=== PATIENT | male | born 1965 | race Caucasian/White ===

== ENCOUNTER 2020-11-26 12:19 | Inpatient (IN) | payer OTHER ==
[~2020-11-26] VITALS: Ht 182.9 cm; Wt 95.1 kg
[~2020-11-26 12:19] MED LIST: ALBU.083IS IH; ALBU90OI; BP MED; CEPH500 PO; CETI10 PO; CODGUAEL PO; CYCL10 PO; DIPH50; DOXY100 PO; EPIN.3I IM; FAMO20 PO; LISI20 PO; Levaquin750 MG PO; METF500 PO; METPRE4DP PO; PRED20 PO; SUGAR PILL
[2020-11-26 13:02] LABS: BASOPHILS ABSOLUTE AUTO 0.05 K/mm3 (0.00-0.23); BASOPHILS PERCENT AUTO 1 % (0-2); EOSINOPHILS ABSOLUTE AUTO 0.08 K/mm3 (0.00-0.68); EOSINOPHILS PERCENT AUTO 1 % (0-6); Hematocrit 43.1 % (37.0-53.0); IMMATURE GRAN ABSOLUTE AUTO 0.02 K/mm3 (0.00-0.10); IMMATURE GRAN PERCENT AUTO 0 % (0-1); LYMPHOCYTES ABSOLUTE AUTO 1.82 K/mm3 (0.84-5.20); LYMPHOCYTES PERCENT AUTO 22 % (21-46); MONOCYTES ABSOLUTE AUTO 0.74 K/mm3 (0.16-1.47); MONOCYTES PERCENT AUTO 9 % (4-13); Mean Corpuscular HGB 28.9 pg (26.0-34.0); Mean Corpuscular HGB Conc 32.5 g/dL (31.5-36.5); Mean Corpuscular Volume 89 fL (80-100); Mean Platelet Volume 11.4 fL (9.1-12.4); NEUTROPHILS ABSOLUTE AUTO 5.57 K/mm3 (1.96-9.15); NEUTROPHILS PERCENT AUTO 67 % (41-73); Platelet Count 275 K/mm3 (150-400); RDW Coefficient Variation 13.3 % (11.7-14.2); RDW Standard Deviation 43.8 fL (35.1-46.3); Red Blood Cell Count 4.85 M/mm3 (4.30-5.90); White Blood Cell Count 8.28 K/mm3 (4.00-11.30)
[2020-11-26 13:04] LABS: Alanine Aminotransfer (ALT/SGP 40 U/L (12-78); Albumin, Blood 3.4 g/dL (3.4-5.0); Albumin/Globulin Ratio 0.9 (0.8-1.8); Alk Phos 40 U/L (50-136); Anion Gap 3 mmol/L (6-16); Aspartate Aminotrans (AST/SGOT 18 U/L (12-37); Bilirubin, Total 0.6 mg/dL (0.1-1.0); Blood Urea Nitrogen 12 mg/dL (8-24); Bun/Creatinine Ratio 16.2 (12.0-20.0); CO2, Blood 32 mmol/L (21-32); Chloride, Blood 97 mmol/L (98-108); Creatinine, Blood 0.74 mg/dL (0.60-1.20); Globulin, Blood 3.8 g/dL (2.2-4.0); Glomerular Filtration Rate >60 (60-); Glucose, Blood 230 mg/dL (70-99); Potassium, Blood 4.3 mmol/L (3.5-5.5); Sodium, Blood 132 mmol/L (136-145); Total Protein, Blood 7.2 g/dL (6.4-8.2); Troponin I 0.024 ng/mL (0.000-0.040)
--- NOTE | 2020-11-26 15:23 | NUR ---
Report by phone received from ED RN. Pt will be admitting to PCU 3.
--- NOTE | 2020-11-26 16:00 | NUR ---
PT arrived to PCU 5; pleasant, cooperative, answering questions appropriately with occasional inappropriate laughter. States had covid vaccine, first one noted on his vacc card, which was copied and placed in the chart. Blood pressure is stable, heart rate continues to be 145/min. Oral metoprolol given as ordered. IV metoprolol held as it appears to be a duplicate order; IV push metoprolol documented as given about 1 hour ago in the ED. Pt is lying back in bed, no Shob, no anxiety, no dyspnea, and denies any pain or dyspnea.
--- NOTE | 2020-11-26 17:02 | NUR ---
Call to Dr. Choi regarding persistent afib rate 140s, one hour post p.o. lopressor, and also after receiving iv lasix and iv lopressor in the ED. Blood pressure is stable, pt condition asymptomatic. spo2 99-100% at rest on room air. Denies chest pain/dyspnea. Anticipating new orders for dig loading from Dr. Choi.
[2020-11-26 18:12] LABS: U Amphetamine Screen DETECTED; U Barbituate Screen Not Detected; U Benzodiazapine Screen Not Detected; U Buprenorphine Screen Not Detected; U Cannabinoids Screen Not Detected; U Cocaine Screen Not Detected; U Methadone Screen Not Detected; U Methamphetamine Screen DETECTED; U Opiates Screen Not Detected; U Oxycodone Screen Not Detected; U Phencyclidine Screen Not Detected; U Propoxyphene Screen Not Detected
--- NOTE | 2020-11-26 19:20 | NUR ---
ASSUMERD CARE OF PATIENT, NO REQUESTS OR CONCERNS AT THIS TIME. SEE [facility] FOR FULL ASSESSMENT.
[2020-11-27 01:04] LABS: BASOPHILS ABSOLUTE AUTO 0.06 K/mm3 (0.00-0.23); BASOPHILS PERCENT AUTO 1 % (0-2); EOSINOPHILS ABSOLUTE AUTO 0.09 K/mm3 (0.00-0.68); EOSINOPHILS PERCENT AUTO 1 % (0-6); Hematocrit 39.8 % (37.0-53.0); Hemoglobin 13.1 g/dL (13.5-17.5); IMMATURE GRAN ABSOLUTE AUTO 0.01 K/mm3 (0.00-0.10); IMMATURE GRAN PERCENT AUTO 0 % (0-1); LYMPHOCYTES ABSOLUTE AUTO 1.78 K/mm3 (0.84-5.20); LYMPHOCYTES PERCENT AUTO 26 % (21-46); MONOCYTES ABSOLUTE AUTO 0.67 K/mm3 (0.16-1.47); MONOCYTES PERCENT AUTO 10 % (4-13); Mean Corpuscular HGB 29.4 pg (26.0-34.0); Mean Corpuscular HGB Conc 32.9 g/dL (31.5-36.5); Mean Corpuscular Volume 89 fL (80-100); Mean Platelet Volume 11.2 fL (9.1-12.4); NEUTROPHILS ABSOLUTE AUTO 4.25 K/mm3 (1.96-9.15); NEUTROPHILS PERCENT AUTO 62 % (41-73); Platelet Count 232 K/mm3 (150-400); RDW Coefficient Variation 13.3 % (11.7-14.2); RDW Standard Deviation 43.6 fL (35.1-46.3); Red Blood Cell Count 4.46 M/mm3 (4.30-5.90); White Blood Cell Count 6.86 K/mm3 (4.00-11.30)
[2020-11-27 01:19] LABS: International Normalized Ratio 1.26; Prothrombin Time Results 13.4 Sec (9.7-11.5)
[2020-11-27 01:24] LABS: Alanine Aminotransfer (ALT/SGP 36 U/L (12-78); Albumin, Blood 2.9 g/dL (3.4-5.0); Albumin/Globulin Ratio 0.9 (0.8-1.8); Alk Phos 35 U/L (50-136); Anion Gap 5 mmol/L (6-16); Aspartate Aminotrans (AST/SGOT 14 U/L (12-37); Bilirubin, Total 0.5 mg/dL (0.1-1.0); Blood Urea Nitrogen 12 mg/dL (8-24); Bun/Creatinine Ratio 19.3 (12.0-20.0); CO2, Blood 32 mmol/L (21-32); Calcium, Blood 8.5 mg/dL (8.5-10.1); Chloride, Blood 99 mmol/L (98-108); Creatinine, Blood 0.62 mg/dL (0.60-1.20); Globulin, Blood 3.3 g/dL (2.2-4.0); Glomerular Filtration Rate >60 (60-); Glucose, Blood 217 mg/dL (70-99); Magnesium, Blood 1.8 mg/dL (1.6-2.4); Sodium, Blood 136 mmol/L (136-145); Total Protein, Blood 6.2 g/dL (6.4-8.2); Troponin I 0.031 ng/mL (0.000-0.040)
--- NOTE | 2020-11-27 10:19 | NUR ---
Supportive Visit Pt resting in bed and denies pain, dyspnea, anxiety, and nausea. Engaged in therapeutic discussion regarding advanced care planning. Gentle education on disease process including trajectory of disease. Discussed the importance of compliance with MD recommendations. Pt appears withdrawn and does not make eye contact during visit. Pt V/U and this RN ended visit. Spoke with Pt's primary RN Mary and discussed case. Palliative Care will remain available.
--- NOTE | 2020-11-27 10:40 | NUR ---
CARDIZEM GTT OFF HR IN TARGET RANGE OF 90 BPM.
--- NOTE | 2020-11-27 17:53 | NUR ---
SHIFT SUMMARY PT ALERT AND ORIENTED X 4. HR TACHY AT TIMES. CARDIZEM GTT STOPPED AT 1040. HR IN 70'S-80'S. BP STABLE. MAP ABOVE 65. OXYGEN SATURATION MAINTAINED ABOVE 92% ON 2 L OF OXYGEN VIA NC. PT SBA. PT ABLE TO TURN SELF IN BED NEEDED. NO CP OR PRESSURE. ECHO DONE, RESULTS NOT AVAILABLE. WILL CONT TO MONITOR UNTIL REPORT GIVEN TO NIGHTSHIFT RN.
--- NOTE | 2020-11-27 21:03 | NUR ---
DR. VERNON INFORMED OF HR SUSTAINED ABOVE 100 FOR 15+ MIN. WAS TOLD BY PRESLEY GAMBINO THAT MD WANTED INFORMED OF THIS. AFLUTTER 108 AT THIS TIME. VSS. ASYMPTOMATIC RESTING IN BED. NO NEW ORDERS AT THIS TIME. WILL CONTINUE TO MONITOR.
[2020-11-28 08:09] LABS: Anion Gap 2 mmol/L (6-16); Blood Urea Nitrogen 13 mg/dL (8-24); Bun/Creatinine Ratio 20.6 (12.0-20.0); CO2, Blood 33 mmol/L (21-32); Calcium, Blood 8.5 mg/dL (8.5-10.1); Chloride, Blood 102 mmol/L (98-108); Creatinine, Blood 0.63 mg/dL (0.60-1.20); Glomerular Filtration Rate >60 (60-); Glucose, Blood 196 mg/dL (70-99); Magnesium, Blood 1.7 mg/dL (1.6-2.4); Potassium, Blood 3.9 mmol/L (3.5-5.5); Sodium, Blood 137 mmol/L (136-145)
--- NOTE | 2020-11-28 08:14 | NUR ---
AWARE OF BLOOD PRESSURE. OK TO GIVE LASIX AND LOPRESSOR
--- NOTE | 2020-11-28 09:28 | NUR ---
ADVISED HEART RATE 110-120'S. GOT LOPRESSOR THIS MORNING AROUND 0845. MD DOES NOT WANT IV LOPRESSOR GIVEN. WILL D'C IV LOPRESSOR. TO WATCH.
--- NOTE | 2020-11-28 18:00 | NUR ---
ALERT. ORIENTED. TELE ON. AFIB 110. HAS BEEN UP TO 120. DENIES ANY PAIN. UNLABORED RESPIRATIONS. WILL HAVE SECOND PART OF STRESS TEST TOMORROW. PATIENT AWARE NPO AFTER MIDNITE. WCTM
--- NOTE | 2020-11-29 06:27 | NUR ---
SHIFT SUMMARY NO ACUTE CHANGES OVERNIGHT. PT SLEPT WELL OVERNIGHT. HE HAD 2 EPISODES OF INCREASED HR AT 2100, ON 130'S A FLUTTER AND 0400 150'S AFLUTTER. PT WAS ASYMPTOMATIC, AND COMFORTABLE IN BED WHEN THIS HAPPENED. HE IS NPO AFTER MIDNIGHT FOR HIS UPCOMING STRESS TEST TODAY. PT VOIDING ADEQUATELY DENIES ANY ISSUES. TOLERATING PO INTAKE. DENIES NAUSEA AND VOMITING. HE ALSO DENIES CHEST PAIN AND SOB. VSS. BLE STILL HAS SOME MILD EDEMA. CALL LIGHT WITHIN REACH. WILL PROVIDE REPORT TO ONCOMING NURSE.
[2020-11-29] MEDS ORDERED: ATOR40TA PO (16:40)
[2020-11-29] MEDS ORDERED: ASPI81CH PO (16:40)
[2020-11-29] MEDS ORDERED: FURO40 PO (16:40)
[2020-11-29] MEDS ORDERED: XARELTO20 MG PO (16:41)
[2020-11-29] MEDS ORDERED: METO50ER PO (16:41)
[2020-11-29] MEDS ORDERED: LISI5 PO (16:41)
--- NOTE | 2020-11-29 17:53 | NUR ---
DISCHARGE SUMMARY PATIENT ALERT AND ORIENTED THROUGHOUT SHIFT. TOLERATING ADA DIET AND FLUIDS. CARDIAC STRESS TEST UNCONCERNING PER MD. PATIENT DISCHARGED HOME AND NEEDS TO FOLLOW UP WITH PCP. DISCHARGE EDUCATION GIVEN ON NEW MEDS, ACTIVITY, AND FOLLOW UP APPOINTMENTS. PATIENT LEFT UNIT AT 1750 VIA WHEELCHAIR FOR HOME VIA TAXI.
== END 2020-11-29 17:42 | disposition home or self-care (01) | DRG 308 ==
LOC: ER 12:19 → PCU 14:13 → EDBEDREQTM 14:26 → PCU 15:35
PROVIDERS: Nurse Practitioner Acute Care; Physician Assistant; ADMIT Hospitalist
DX: I48.92 Unspecified atrial flutter (principal); I50.21 Acute systolic (congestive) heart failure; E87.1 Hypo-osmolality and hyponatremia; I11.0 Hypertensive heart disease with heart failure; I42.0 Dilated cardiomyopathy; E11.9 Type 2 diabetes mellitus without complications; F15.10 Other stimulant abuse, uncomplicated; F17.210 Nicotine dependence, cigarettes, uncomplicated; J45.20 Mild intermittent asthma, uncomplicated; Z88.0 Allergy status to penicillin; Z91.19 Patient's noncompliance with other medical treatment and regimen
CPT/HCPCS: 36415; 71046; 78452; 80048; 80053; 82947; 83036; 83735; 83880; 84443; 84484; 85025; 85610; 93005; 93010; 93017; 94640; 94664; 94760; 96374; 96375; 99285-25; A9270; A9500; C8929; J0706; J1160; J1940; J2785; Q9957

== ENCOUNTER 2020-12-22 14:23 | Observation (INO) | payer OTHER ==
[~2020-12-22] VITALS: Ht 182.9 cm; Wt 102.1 kg
[~2020-12-22 14:23] MED LIST changes: +ATOR40TA PO; +Aspir 8181 MG PO; +FURO40 PO; +LISI5 PO; +METO50ER PO; +XARELTO20 MG PO
[2020-12-22 14:59] LABS: BASOPHILS ABSOLUTE AUTO 0.05 K/mm3 (0.00-0.23); BASOPHILS PERCENT AUTO 1 % (0-2); EOSINOPHILS ABSOLUTE AUTO 0.17 K/mm3 (0.00-0.68); EOSINOPHILS PERCENT AUTO 2 % (0-6); Hematocrit 41.2 % (37.0-53.0); Hemoglobin 13.3 g/dL (13.5-17.5); IMMATURE GRAN ABSOLUTE AUTO 0.01 K/mm3 (0.00-0.10); IMMATURE GRAN PERCENT AUTO 0 % (0-1); LYMPHOCYTES ABSOLUTE AUTO 1.74 K/mm3 (0.84-5.20); LYMPHOCYTES PERCENT AUTO 23 % (21-46); MONOCYTES ABSOLUTE AUTO 0.77 K/mm3 (0.16-1.47); MONOCYTES PERCENT AUTO 10 % (4-13); Mean Corpuscular HGB Conc 32.3 g/dL (31.5-36.5); Mean Corpuscular Volume 90 fL (80-100); Mean Platelet Volume 11.6 fL (9.1-12.4); NEUTROPHILS ABSOLUTE AUTO 4.94 K/mm3 (1.96-9.15); NEUTROPHILS PERCENT AUTO 64 % (41-73); Platelet Count 206 K/mm3 (150-400); RDW Coefficient Variation 13.9 % (11.7-14.2); RDW Standard Deviation 46.1 fL (35.1-46.3); Red Blood Cell Count 4.59 M/mm3 (4.30-5.90); White Blood Cell Count 7.68 K/mm3 (4.00-11.30)
[2020-12-22 15:58] LABS: Alanine Aminotransfer (ALT/SGP 45 U/L (12-78); Albumin, Blood 3.4 g/dL (3.4-5.0); Albumin/Globulin Ratio 0.9 (0.8-1.8); Alk Phos 45 U/L (50-136); Anion Gap 5 mmol/L (6-16); Aspartate Aminotrans (AST/SGOT 20 U/L (12-37); Bilirubin, Total 0.3 mg/dL (0.1-1.0); Blood Urea Nitrogen 14 mg/dL (8-24); Bun/Creatinine Ratio 21.1 (12.0-20.0); CO2, Blood 32 mmol/L (21-32); Calcium, Blood 8.5 mg/dL (8.5-10.1); Chloride, Blood 97 mmol/L (98-108); Creatinine, Blood 0.66 mg/dL (0.60-1.20); Globulin, Blood 3.8 g/dL (2.2-4.0); Glomerular Filtration Rate >60 (60-); Glucose, Blood 210 mg/dL (70-99); Sodium, Blood 134 mmol/L (136-145); Total Protein, Blood 7.2 g/dL (6.4-8.2); Troponin I <0.015 ng/mL (0.000-0.040)
[2020-12-22 18:43] LABS: SARS-Cov-2 (COVID-19) PCR, MMC NEGATIVE (NEGATIVE)
[2020-12-22 22:16] LABS: U Amphetamine Screen DETECTED; U Barbituate Screen Not Detected; U Benzodiazapine Screen Not Detected; U Buprenorphine Screen Not Detected; U Cannabinoids Screen Not Detected; U Cocaine Screen Not Detected; U Methadone Screen Not Detected; U Methamphetamine Screen DETECTED; U Opiates Screen Not Detected; U Oxycodone Screen Not Detected; U Phencyclidine Screen Not Detected; U Propoxyphene Screen Not Detected
[2020-12-23 04:00] LABS: BASOPHILS ABSOLUTE AUTO 0.05 K/mm3 (0.00-0.23); BASOPHILS PERCENT AUTO 1 % (0-2); EOSINOPHILS ABSOLUTE AUTO 0.11 K/mm3 (0.00-0.68); EOSINOPHILS PERCENT AUTO 1 % (0-6); Hematocrit 39.7 % (37.0-53.0); Hemoglobin 12.6 g/dL (13.5-17.5); IMMATURE GRAN ABSOLUTE AUTO 0.02 K/mm3 (0.00-0.10); IMMATURE GRAN PERCENT AUTO 0 % (0-1); LYMPHOCYTES ABSOLUTE AUTO 1.66 K/mm3 (0.84-5.20); LYMPHOCYTES PERCENT AUTO 21 % (21-46); MONOCYTES ABSOLUTE AUTO 0.66 K/mm3 (0.16-1.47); MONOCYTES PERCENT AUTO 8 % (4-13); Mean Corpuscular HGB 28.8 pg (26.0-34.0); Mean Corpuscular HGB Conc 31.7 g/dL (31.5-36.5); Mean Corpuscular Volume 91 fL (80-100); Mean Platelet Volume 11.8 fL (9.1-12.4); NEUTROPHILS PERCENT AUTO 68 % (41-73); Platelet Count 203 K/mm3 (150-400); RDW Standard Deviation 46.8 fL (35.1-46.3); Red Blood Cell Count 4.37 M/mm3 (4.30-5.90)
[2020-12-23 04:18] LABS: Anion Gap 5 mmol/L (6-16); Blood Urea Nitrogen 18 mg/dL (8-24); Bun/Creatinine Ratio 18.6 (12.0-20.0); CO2, Blood 34 mmol/L (21-32); Calcium, Blood 8.7 mg/dL (8.5-10.1); Chloride, Blood 95 mmol/L (98-108); Creatinine, Blood 0.97 mg/dL (0.60-1.20); Glomerular Filtration Rate >60 (60-); Glucose, Blood 229 mg/dL (70-99); Magnesium, Blood 2.3 mg/dL (1.6-2.4); Potassium, Blood 4.2 mmol/L (3.5-5.5); Sodium, Blood 134 mmol/L (136-145)
--- NOTE | 2020-12-23 06:28 | NUR ---
SHIFT SUMMARY PT ARRIVED FROM ED AT 2300. ADENOSIVE IV PUSHES AND IV LASIX GIVEN IN ED TO MANAGE HR. PITTING EDEMA IN LOWER EXTREMITIES. ALERT AND ORIENTED X4. X1 STANDBY ASSIST, AMBULATES TO BATHROOM ON HIS OWN. A-FIB 110-120'S. DESATS WITH ACTIVITY, MAINTAINING OVER 92% AT REST ON 3L NC. TOX SCREEN POSITIVE FOR AMPHETAMINES. AWAKE MOST OF NIGHT. WILL CONTINUE TO MONITOR UNTIL REPORT GIVEN TO DAYSHIFT RN
--- NOTE | 2020-12-23 14:24 | NUR ---
DISCHARGE NOTE PATIENT EDUCATED ON DISCHARGE INSTRUCTIONS, INCUDING MEDICATION INSTRUCTIONS BY THIS NURSE. PATIENT WAS TRANSFERED VIA WHEELCHAIR BY ROX GUTIERREZ AND WAS STABLE UPON DISCHARGE. PATIENT WAS PICKED UP BY SPOUSE AT [facility] AND REFUSED TO TAKE BELONGINGS INCLUDING DISCHARGE INSTRUCTIONS WITH HIM STATED BY ROX GUTIERREZ.
== END 2020-12-23 10:56 | disposition home or self-care (01) ==
LOC: ER 14:23 → PCU 14:24
PROVIDERS: Physician Assistant; Student in an Organized Health Care Education/Training Program; ADMIT Internal Medicine
DX: I11.0 Hypertensive heart disease with heart failure (principal); I50.43 Acute on chronic combined systolic (congestive) and diastolic (congestive) heart failure; I48.92 Unspecified atrial flutter; E11.9 Type 2 diabetes mellitus without complications; J45.909 Unspecified asthma, uncomplicated; F17.210 Nicotine dependence, cigarettes, uncomplicated; I08.1 Rheumatic disorders of both mitral and tricuspid valves; I27.20 Pulmonary hypertension, unspecified; F15.10 Other stimulant abuse, uncomplicated; Z88.0 Allergy status to penicillin; Z91.030 Bee allergy status; Z79.01 Long term (current) use of anticoagulants; Z91.14 Patient's other noncompliance with medication regimen; Z20.822 Contact with and (suspected) exposure to COVID-19
CPT/HCPCS: 36415; 71046; 80048; 80053; 82947; 83036; 83735; 83880; 84443; 84484; 85025; 93005; 93010; 96361; 96365; 96366; 96375; 96376; 99285-25; A9270; G0378; J0153; J1940; J3475; J7030; U0004

== ENCOUNTER 2020-12-30 14:49 | Inpatient (IN) | payer OTHER ==
[~2020-12-30] VITALS: Ht 182.9 cm; Wt 86.2 kg
[2020-12-30 15:22] LABS: BASOPHILS ABSOLUTE AUTO 0.03 K/mm3 (0.00-0.23); BASOPHILS PERCENT AUTO 1 % (0-2); EOSINOPHILS ABSOLUTE AUTO 0.01 K/mm3 (0.00-0.68); EOSINOPHILS PERCENT AUTO 0 % (0-6); Hematocrit 41.8 % (37.0-53.0); Hemoglobin 13.2 g/dL (13.5-17.5); IMMATURE GRAN ABSOLUTE AUTO 0.01 K/mm3 (0.00-0.10); IMMATURE GRAN PERCENT AUTO 0 % (0-1); LYMPHOCYTES ABSOLUTE AUTO 1.14 K/mm3 (0.84-5.20); LYMPHOCYTES PERCENT AUTO 22 % (21-46); MONOCYTES ABSOLUTE AUTO 0.66 K/mm3 (0.16-1.47); MONOCYTES PERCENT AUTO 13 % (4-13); Mean Corpuscular HGB 28.9 pg (26.0-34.0); Mean Corpuscular HGB Conc 31.6 g/dL (31.5-36.5); Mean Corpuscular Volume 92 fL (80-100); NEUTROPHILS PERCENT AUTO 65 % (41-73); Platelet Count 253 K/mm3 (150-400); RDW Coefficient Variation 14.5 % (11.7-14.2); RDW Standard Deviation 48.1 fL (35.1-46.3); Red Blood Cell Count 4.57 M/mm3 (4.30-5.90); White Blood Cell Count 5.25 K/mm3 (4.00-11.30)
[2020-12-30 15:39] LABS: Magnesium, Blood 1.8 mg/dL (1.6-2.4)
[2020-12-30 15:40] LABS: Alanine Aminotransfer (ALT/SGP 62 U/L (12-78); Albumin/Globulin Ratio 0.8 (0.8-1.8); Alk Phos 43 U/L (50-136); Anion Gap 3 mmol/L (6-16); Aspartate Aminotrans (AST/SGOT 26 U/L (12-37); Bilirubin, Total 0.5 mg/dL (0.1-1.0); Blood Urea Nitrogen 17 mg/dL (8-24); Bun/Creatinine Ratio 21.6 (12.0-20.0); CO2, Blood 33 mmol/L (21-32); Calcium, Blood 8.2 mg/dL (8.5-10.1); Chloride, Blood 97 mmol/L (98-108); Creatinine, Blood 0.79 mg/dL (0.60-1.20); Globulin, Blood 3.6 g/dL (2.2-4.0); Glomerular Filtration Rate >60 (60-); Glucose, Blood 311 mg/dL (70-99); Potassium, Blood 5.1 mmol/L (3.5-5.5); Sodium, Blood 133 mmol/L (136-145); Total Protein, Blood 6.6 g/dL (6.4-8.2)
[2020-12-30 16:31] LABS: U Amphetamine Screen Not Detected; U Barbituate Screen Not Detected; U Benzodiazapine Screen Not Detected; U Buprenorphine Screen Not Detected; U Cannabinoids Screen Not Detected; U Cocaine Screen Not Detected; U Methadone Screen Not Detected; U Methamphetamine Screen DETECTED; U Opiates Screen Not Detected; U Oxycodone Screen Not Detected; U Phencyclidine Screen Not Detected; U Propoxyphene Screen Not Detected
[2020-12-31 00:30] LABS: Source, Urine Catheter
[2020-12-31 00:31] LABS: Bilirubin, Urine Neg (Neg); Blood, Urine 3+ (Neg); Glucose Qualitative, Urine Neg (Neg); Ketones, Urine Neg (Neg); Leukocyte Esterase, Urine 1+ (Neg); Nitrite, Urine Neg (Neg); Protein, Urine 3+ (Neg); Specific Gravity, Urine 1.025 (1.003-1.022); Urobilinogen, Urine 2+ (Normal)
[2020-12-31 00:37] LABS: Appearance, Urine Hazy (Clear); Bacteria Few /hpf; Color, Urine Yellow (P-Yellow); Hyaline Casts TNTC /lpf (0-2); Squamous Epithelial Cells Rare /hpf (Few); White Blood Cells, Urine TNTC /hpf (0-5)
[2020-12-31 05:41] LABS: BASOPHILS ABSOLUTE AUTO 0.01 K/mm3 (0.00-0.23); BASOPHILS PERCENT AUTO 0 % (0-2); EOSINOPHILS PERCENT AUTO 0 % (0-6); Hematocrit 45.2 % (37.0-53.0); Hemoglobin 13.5 g/dL (13.5-17.5); IMMATURE GRAN ABSOLUTE AUTO 0.02 K/mm3 (0.00-0.10); IMMATURE GRAN PERCENT AUTO 0 % (0-1); LYMPHOCYTES ABSOLUTE AUTO 0.61 K/mm3 (0.84-5.20); LYMPHOCYTES PERCENT AUTO 11 % (21-46); MONOCYTES PERCENT AUTO 9 % (4-13); Mean Corpuscular HGB 28.5 pg (26.0-34.0); Mean Corpuscular HGB Conc 29.9 g/dL (31.5-36.5); Mean Corpuscular Volume 95 fL (80-100); Mean Platelet Volume 10.8 fL (9.1-12.4); NEUTROPHILS ABSOLUTE AUTO 4.27 K/mm3 (1.96-9.15); NEUTROPHILS PERCENT AUTO 79 % (41-73); Platelet Count 257 K/mm3 (150-400); RDW Coefficient Variation 14.4 % (11.7-14.2); RDW Standard Deviation 50.2 fL (35.1-46.3); Red Blood Cell Count 4.74 M/mm3 (4.30-5.90); White Blood Cell Count 5.41 K/mm3 (4.00-11.30)
[2020-12-31 06:11] LABS: Anion Gap 5 mmol/L (6-16); Blood Urea Nitrogen 26 mg/dL (8-24); Bun/Creatinine Ratio 25.5 (12.0-20.0); CO2, Blood 34 mmol/L (21-32); Calcium, Blood 8.1 mg/dL (8.5-10.1); Chloride, Blood 96 mmol/L (98-108); Creatinine, Blood 1.02 mg/dL (0.60-1.20); Glomerular Filtration Rate >60 (60-); Glucose, Blood 137 mg/dL (70-99); Potassium, Blood 5.1 mmol/L (3.5-5.5); Sodium, Blood 135 mmol/L (136-145)
--- NOTE | 2020-12-31 08:04 | NUR ---
SHIFT SUMMARY PATIENT ARRIVED TO ROOM 335 VIA STRETCHER. ALERT AND ORIENTED X2. CONFUSED AND FORGETFUL. MEDICATED PER EMAR FOR TACHYCARDIA. PLACED ON A NONREBREATHER MASK TO HELP MAINTAIN SATS AND PLACED ON CONTINUOUS BIOX TO MONITOR SATS.
[2020-12-31 09:50] LABS: Base Excess Venous 6.1 mmol/L; Bicarbonate Venous 26.1 mmol/L (24.0-30.0); PCO2 Venous 97 mmHg (38-42); PO2 Venous 49.1 mmHg (38-42); pH Blood Venous 7.16 (7.34-7.37)
[2020-12-31 10:54] LABS: Base Excess Venous 7.3 mmol/L; Bicarbonate Venous 26.2 mmol/L (24.0-30.0); PCO2 Venous 96.9 mmHg (38-42); PO2 Venous 27.1 mmHg (38-42); pH Blood Venous 7.18 (7.34-7.37)
--- NOTE | 2020-12-31 12:19 | NUR ---
Care Assumed 1122 Pt SKEIN TIER from medical floor 335. Pt unresponsive per medical floor nurse. Pt on BIPAP 18/5, FIO2 50% when care assumed. Pt wakes to sternal rub initally but since arrival has been able to state name, nods no to knowing location, and following all commands. Opens eyes to verbal command. Per Dr. Robertson NS bolus stopped and pt started on Levophed @ 1 mcg/min to keep MAP > 65, via right AC IV. IV flushs well but not returning blood. Charge nurse Tasneem at bedside to place PICC. Pt in AFIB HR 120's. Pitting edema 2+ in BLE and 1+ in upper extrems. Call light within reach.
--- NOTE | 2020-12-31 14:09 | NUR ---
Ethics consultation order received and processed. Clarification sought regarding the extent to which the principals POLST is legally binding, if it stipulates medical treatment which is contraindicated, disproportionate or beyond a reasonable standard of care. The POLST is a medical order that provides helpful insight into the principals wishes. It should be defaulted to for guidance on what the principal would generally be agreeable to. If the patient is incapable, or lacks testamentary capacity, and the goals of treatment, along with the patients clincial reality are not well aligned to the POLST, a discussion with his proxy or NOK to alter the code status would be appropriate. If such is the case in the providers judgement, I would recommend using the informed dissent process to educate the principals sister that the patient is now elegible for hospice, and that adopting a non-aggressive course of treatment would be the most responsible, dignified, and ethically appropriate course moving forward. Thank you for this consult. Justice Dhaliwal ThD
--- NOTE | 2020-12-31 15:24 | NUR ---
NG tube insertion Attempted to insert NG to help decomrpess patients stomach. Pts abd is firm and round. Pt denies pain.NG tube attempted by Shannan GAMBINO and RT Busby without success. Will attempt again. Pt tolerated being off BIPAP for a few moments.
--- NOTE | 2020-12-31 15:41 | NUR ---
Rapid response called on patient. transfered to ICU. Attemtped several times to call his sister with no answer. pt has on bipap, expressed full treatment has a polst. Called for ethics consult as unable to reach family for decision making. pt kps score is 20%. prognosis very poor due to his severe comorbid conditions. Will continue to try to reach family.
[2020-12-31 15:59] LABS: Bicarbonate Venous 27.4 mmol/L (24.0-30.0); PCO2 Venous 73.8 mmHg (38-42); PO2 Venous 55.1 mmHg (38-42); pH Blood Venous 7.26 (7.34-7.37)
[2020-12-31 16:00] LABS: Base Excess Venous 6.2 mmol/L
--- NOTE | 2020-12-31 16:17 | NUR ---
Update- provider visit Dr. Robertson at bedside and would like Lasix given now instead of 1800. Pts current urine output is 125 ml's. Will continue to monitor. Bipap 18/5, FIO2 35%. Levophed GTT 5 mcg/min.
--- NOTE | 2020-12-31 18:49 | NUR ---
Shift Summary Bipap settings: 18/5, FIO2 35%, SPO2 > 90%. Pt continues to following commands but falls asleep when undisturbed. Levophed GTT 3 MCG/MIN, MAP > 65. Infusing via PICC to BRANDT. Tirado in place. Pts abd continues to be distended. Provider made aware of multiple attempted NG tube insertion. Will ask nightshift to attempt NG tube again. Currently allowing pt to rest. Pt remains in AFIB HR 120-130's.
--- NOTE | 2020-12-31 19:15 | NUR ---
ASSUMPTION OF CARE PT REMAINS ON BIPAP WITH SETTINGS 18/5 35%. PT TOLERATING BIPAP WELL, DOES NOT SHOW SIGNS OF DISTRESS OR PULLING AT MASK. PT WAKENS TO VERBAL STIMULI. FOLLOWS VERBAL COMMANDS, MOVES UPPER AND LOWER EXTREMITIES WHEN ASKED AND WITH PURPOSEFUL MOVEMENT. ABDOMEN DISTENDED AND FIRM. PT DENIES PAIN WITH PALPATION. NO NGT IN PLACE. PT RECEIVING LEVOPHED 2MCG/MIN. LR IN PLACE. SEE SHIFT ASSESSMENT.
[2021-01-01 04:08] LABS: BASOPHILS ABSOLUTE AUTO 0.01 K/mm3 (0.00-0.23); BASOPHILS PERCENT AUTO 0 % (0-2); EOSINOPHILS PERCENT AUTO 0 % (0-6); Hematocrit 44.9 % (37.0-53.0); Hemoglobin 14.1 g/dL (13.5-17.5); IMMATURE GRAN ABSOLUTE AUTO 0.04 K/mm3 (0.00-0.10); IMMATURE GRAN PERCENT AUTO 0 % (0-1); LYMPHOCYTES ABSOLUTE AUTO 1.41 K/mm3 (0.84-5.20); LYMPHOCYTES PERCENT AUTO 16 % (21-46); MONOCYTES PERCENT AUTO 12 % (4-13); Mean Corpuscular HGB Conc 31.4 g/dL (31.5-36.5); Mean Corpuscular Volume 92 fL (80-100); Mean Platelet Volume 10.9 fL (9.1-12.4); NEUTROPHILS ABSOLUTE AUTO 6.38 K/mm3 (1.96-9.15); NEUTROPHILS PERCENT AUTO 71 % (41-73); Platelet Count 257 K/mm3 (150-400); RDW Coefficient Variation 14.2 % (11.7-14.2); RDW Standard Deviation 48.8 fL (35.1-46.3); Red Blood Cell Count 4.86 M/mm3 (4.30-5.90); White Blood Cell Count 8.94 K/mm3 (4.00-11.30)
[2021-01-01 04:25] LABS: Alanine Aminotransfer (ALT/SGP 103 U/L (12-78); Albumin/Globulin Ratio 0.9 (0.8-1.8); Alk Phos 43 U/L (50-136); Anion Gap 2 mmol/L (6-16); Aspartate Aminotrans (AST/SGOT 58 U/L (12-37); Bilirubin, Total 0.5 mg/dL (0.1-1.0); Blood Urea Nitrogen 32 mg/dL (8-24); Bun/Creatinine Ratio 34.5 (12.0-20.0); CO2, Blood 38 mmol/L (21-32); Calcium, Blood 8.2 mg/dL (8.5-10.1); Chloride, Blood 95 mmol/L (98-108); Creatinine, Blood 0.93 mg/dL (0.60-1.20); Globulin, Blood 3.3 g/dL (2.2-4.0); Glomerular Filtration Rate >60 (60-); Glucose, Blood 162 mg/dL (70-99); Phosphorus, Blood 5.4 mg/dL (2.5-4.9); Potassium, Blood 5.1 mmol/L (3.5-5.5); Sodium, Blood 135 mmol/L (136-145); Total Protein, Blood 6.3 g/dL (6.4-8.2)
--- NOTE | 2021-01-01 06:52 | NUR ---
SHIFT SUMMARY PT REMAINS ON BIPAP AT THIS TIME. SETTINGS 18/5 FIO2 30%. PT TOLERATING MASK WELL, NO SIGNS OF DISTRESS OR PULLING AT MASK. PT RECEIVING LEVOPHED 3MCG/MIN. PT WAKENS TO VERBAL STIMULI AND FOLLOWS COMMANDS. PT OCCASIONALLY CONFUSED, SOMETIMES KNOWS HE IS AT THE HOSPITAL, OTHER TIMES SAYS HE DOES NOT KNOW WHERE HE IS. ANSWERS QUESTIONS APPROPRIATELY. LR IN PLACE DRAINING LIGHT YELLOW URINE. SHIFT OUTPUT OF 2250ML. SCROTUM IS REDDENED AND SWOLLEN. NONADHERENT DRESSING PLACED BETWEEN SCROTUM AND THIGHS. ABDOMEN REMAINS DISTENDED, FIRM TO TOUCH, NO PAIN WITH PALPATION. WILL REPORT TO ONCOMING RN.
--- NOTE | 2021-01-01 09:30 | NUR ---
ASSUMED CARE REPORT FROM DANIE/CHALINO RN AT 0700. PT RESTING IN BED. BIPAP IN PLACE AT SHIFT CHANGE 18/5/35%, CHANGED TO AIRVO 50L/30%. TOLERATING WELL. OCCASIONALLY DESAT TO HIGH 80'S. RESOLVED c DEEP BREATHS. PT A&O X 3. FOLLOWS COMMANDS. DENIES COMPLAINTS. DENIES SOB. LUNGS DIM IN BASES. REPORTS NON PRODUCTIVE COUGH. SPEAKING IN FULL SENTANCES. P/W/D. HR 150'S, DR PORTILLO NOTIFIED. AMIODORONE GTT STARTED ORDERED. PT DENIES CHEST PAIN, ST ON MONITOR. LEVO GTT FOR MAP>65. INFUSING AT 3 MCG/MIN AT THIS TIME. JOAN, ABLE TO REPOSITION SELF IN BED INDEPENDENTLY. PICC TO MILKA, DRESSING C/D/I. WILL CONTINUE TO MONITOR.
--- NOTE | 2021-01-01 09:37 | NUR ---
SPOKE WITH DR. ROMO AND DR. PORTILLO REGARDING PATIENT'S HEART RATE. PATIENT'S HEART RATE UP TO 150'S. PER REPORT IT WAS IN THE 130'S-140'S LAST NIGHT AND DID NOT RESPOND TO LOPRESSOR. PATIENT HAS METOPROLOL SUCCINATE 75 MG ORDERED THIS AM. HE IS RECEIVING NOREPINEPHRINE AT 3 MCGS. LAST BP 92/72. DR. ROMO STATED SHE WOULD PUT IN ORDERS FOR AMIODARONE BOLUS AND AMIODARONE DRIP. HOLD METOPROLOL SUCCINATE THIS AM.
--- NOTE | 2021-01-01 12:49 | NUR ---
AT APPROX 1145 WE WERE COMPLETING BEDBATH. PATIENT WAS ON AIRVO 50L FIO2 40%. PATIENT TURNED TO LEFT SIDE AND SPO2 DECREASED TO 77%. PLACED PATIENT BACK ON HIS BACK AND SWITCHED HIM TO BIPAP 18/5 FIO2 40%. PATIENT RECOVERED SPO2 TO 90'S WITHIN A FEW MINUTES. FINISHED BEDBATH AND HAD PATIENT WEAR BIPAP UNTIL 1230 AND SWITCHED HIM BACK TO AIRVO 50L FIO2 35%, SPO2 MAINTAINING IN 90'S AND PATIENT IS SITTING UP EATING LUNCH. CALL LIGHT IN REACH.
--- NOTE | 2021-01-01 12:53 | NUR ---
Update on the principals code status. I was informed that Davie's mentation improved and that he was currently stable for a conversation. Davie and I discussed that in his advanced condition, aggressive treatment would be of low medical benefit, and likely cause disproportionate harm. Davie verbalized that under such circumstances he would prefer to forgo mechanical intubation, chest compressions, and other equivalent forms of invasive care. Thank you for this consult. Justice Dhaliwal ThD
--- NOTE | 2021-01-01 13:38 | NUR ---
DR. MARTINEZ AT BEDSIDE. DISCUSSED POC. NOTIFIED HIM PATIENT ON AIRVO 50L FIO2 35%, DID REQUIRE TO BE PLACED ON BIPAP FOR SPO2 77% WHEN HE TURNED FOR BEDBATH. PATIENT IS NOW SITTING UP IN BED TOLERATING AIRVO 50L FIO2 35%. PATIENT DOES HAVE SCROTAL SWELLING AND RED AREAS TO INNER THIGHS AND SCROTUM. ORDERS RECEIVED INITIALLY FOR NYSTATIN POWDER TID. PHARMACY STATES THAT WE DO NOT CARRY NYSTATIN POWDER ANY LONGER. DR. MARTINEZ ORDERED MICONAZOLE POWDER TID INSTEAD.
--- NOTE | 2021-01-01 14:30 | NUR ---
DNR BAND PLACED AND VERIFIED WITH STAR DUVAL RN.
--- NOTE | 2021-01-01 18:46 | NUR ---
SHIFT SUMMARY PT ALTERATED BETWEEN BIPAP, 18/5/30% AND AIRVO 50L 30% THIS SHIFT. TOLERATED BREAKS WELL. DE SATS c EXERTION. DENIES COMPLAINTS. AMIODORONE GTT STARTED FOR HR, ST, RATE 130S. LEVO GTT CONTINUES FOR MAP >65. LR PATENT, DRAINING TO GRAVITY. WILL CONTINUE TO MONITOR UNTIL REPORT TO ONCOMING NURSE.
--- NOTE | 2021-01-01 20:10 | NUR ---
Pt cousin Taye Mayo saw him today she is a nurse at the hospital. Pt is ok with her involvement in his care and getting information. Taye is anurse here. This is of beneftit to a plan of care. She will try to reach out and contact his brother and get him some help with his living situation. will get him to fill out a polst and will review intermediate designer goals.
--- NOTE | 2021-01-01 21:45 | NUR ---
SHIFT ASSESSMENT ASSUMED CARE OF PT @ 1900. REPORT FROM IMMANUEL GRAVES. PT ALERT AND ORIENTED. FOLLOWING COMMANDS. MOVING ALL EXTREMITIES, BUT VERY WEAK. C/O SORENESS TO SCROTUM. ON AIRVO-50L/30% c O2 SATS >88%. DENIES SOB & CP. OCCASIONAL NONPRODUCTIVE COUGH. LEVO GTT INFUSING @ 3MCG/MIN C MAP >65. ST IN THE 130'S ON THE BRICK OFF BEARER. AMIODARONE GTT INFUSING. NO BM THIS SHIFT. WILL CONTINUE TO MONITOR.
--- NOTE | 2021-01-02 02:29 | NUR ---
UPDATE PT BEGAN C/O NAUSEA. MACHINE SPREADER NOTIFIED, PT GIVEN ZOFRAN AND ATIVAN. NG TUBE ESTABLISHED TO LIS. DRAINING COPIOUS AMNTS OF WOODRUFF SECRETIONS. AIRVO PRONGS MOVED TO MOUTH, PT TOLERATING AT THIS TIME. WILL CONTINUE TO MONITOR.
[2021-01-02 03:40] LABS: BASOPHILS ABSOLUTE AUTO 0.01 K/mm3 (0.00-0.23); BASOPHILS PERCENT AUTO 0 % (0-2); EOSINOPHILS PERCENT AUTO 0 % (0-6); Hematocrit 38.2 % (37.0-53.0); Hemoglobin 12.1 g/dL (13.5-17.5); IMMATURE GRAN ABSOLUTE AUTO 0.02 K/mm3 (0.00-0.10); IMMATURE GRAN PERCENT AUTO 0 % (0-1); LYMPHOCYTES ABSOLUTE AUTO 0.99 K/mm3 (0.84-5.20); LYMPHOCYTES PERCENT AUTO 14 % (21-46); MONOCYTES ABSOLUTE AUTO 0.76 K/mm3 (0.16-1.47); MONOCYTES PERCENT AUTO 11 % (4-13); Mean Corpuscular HGB 28.8 pg (26.0-34.0); Mean Corpuscular HGB Conc 31.7 g/dL (31.5-36.5); Mean Corpuscular Volume 91 fL (80-100); Mean Platelet Volume 10.9 fL (9.1-12.4); NEUTROPHILS ABSOLUTE AUTO 5.19 K/mm3 (1.96-9.15); NEUTROPHILS PERCENT AUTO 75 % (41-73); Platelet Count 238 K/mm3 (150-400); RDW Coefficient Variation 14.2 % (11.7-14.2); RDW Standard Deviation 46.9 fL (35.1-46.3); White Blood Cell Count 6.97 K/mm3 (4.00-11.30)
[2021-01-02 03:56] LABS: Albumin, Blood 2.8 g/dL (3.4-5.0); Anion Gap 3 mmol/L (6-16); Blood Urea Nitrogen 32 mg/dL (8-24); Bun/Creatinine Ratio 39.8 (12.0-20.0); CO2, Blood 38 mmol/L (21-32); Calcium, Blood 7.6 mg/dL (8.5-10.1); Chloride, Blood 86 mmol/L (98-108); Glomerular Filtration Rate >60 (60-); Glucose, Blood 458 mg/dL (70-99); Phosphorus, Blood 3.4 mg/dL (2.5-4.9); Potassium, Blood 4.3 mmol/L (3.5-5.5); Sodium, Blood 127 mmol/L (136-145)
--- NOTE | 2021-01-02 06:29 | NUR ---
SHIFT SUMMARY PT REMAINS A&OX4. FOLLOWING COMMANDS. ABLE TO ASSIST WITH TURNS BUT VERY WEAK. TOLERATING NG TUBE WELL, ON LIS. DURING RT ROUNDS PT WAS TRANSITIONED FROM AIRVO TO HFNC @ 15LPM, O2 SATS >95%, TITRATING DOWN SLOWLY. PT REMAINS TACHYCARDIC IN THE 120-130'S. LEVOPHED @ 2MCG/MIN c MAP >65. DENIES CP. NO C/O NAUSEA SINCE NG PLACED, PT ONLY RECEIVING SMALL SIPS OF WATER AT THIS TIME.
--- NOTE | 2021-01-02 16:54 | NUR ---
pt to PCU 9. PT REMAINS ON 6L O2 VIA HIGH FLOW NC. PT IN NO ACUTE DISTRESS. ALERT AND ORIENTED, FOLLOWING COMMANDS AND ASSISTING WITH REPOSITIONING.
--- NOTE | 2021-01-02 17:43 | NUR ---
pt moved to [facility]. RN Taye Mayo is his cousin she agreed to be his contact lens technician. She is trying to hlep him with a life plan. updated his face sheet. kps score is 40%.
--- NOTE | 2021-01-02 18:21 | NUR ---
ARRIVAL TO PCU/SHIFT SUMMARY PATIENT ARRIVED TO PCU AT 1700 BY ICU BED ON 6L HIGHFLOW NC. PATIENT TRANSFERED TO PCU BED BY A SLIDER SHEET WITH STAFF ASSISTING. PATIENT IS ALERT AND ORIENTATED X4. VSS. SPO2 >90% ON 6L HIGHFLOW NC. TELE AFLUTTER 113. PATIENT HAS GENERALIZED WEAKNESS. PATIENT IS ORIENTATED TO ROOM AND CALL LIGHT. PATIENT HAS LR DRAINING WITH GRAVITY ARELIS YELLOW CLEAR. PATIENT HAS NG TUB CLAMPED. PATIENT IS RESTING IN BED. CALL LIGHT WITHIN REACH. WILL CONTINUE TO MONITOR AND PROVIDE CARE UNTIL HAND OFF WITH NEXT SHIFT.
[2021-01-03 05:25] LABS: BASOPHILS ABSOLUTE AUTO 0.01 K/mm3 (0.00-0.23); BASOPHILS PERCENT AUTO 0 % (0-2); EOSINOPHILS PERCENT AUTO 0 % (0-6); Hematocrit 43.1 % (37.0-53.0); Hemoglobin 13.2 g/dL (13.5-17.5); IMMATURE GRAN ABSOLUTE AUTO 0.02 K/mm3 (0.00-0.10); IMMATURE GRAN PERCENT AUTO 0 % (0-1); LYMPHOCYTES PERCENT AUTO 18 % (21-46); MONOCYTES ABSOLUTE AUTO 0.73 K/mm3 (0.16-1.47); MONOCYTES PERCENT AUTO 13 % (4-13); Mean Corpuscular HGB 28.6 pg (26.0-34.0); Mean Corpuscular HGB Conc 30.6 g/dL (31.5-36.5); Mean Corpuscular Volume 93 fL (80-100); Mean Platelet Volume 11.1 fL (9.1-12.4); NEUTROPHILS PERCENT AUTO 69 % (41-73); Platelet Count 228 K/mm3 (150-400); RDW Coefficient Variation 14.2 % (11.7-14.2); RDW Standard Deviation 48.1 fL (35.1-46.3); Red Blood Cell Count 4.62 M/mm3 (4.30-5.90); White Blood Cell Count 5.66 K/mm3 (4.00-11.30)
--- NOTE | 2021-01-03 05:27 | NUR ---
SHIFT SUMMARY NO ACUTE CHANGES THIS SHIFT, BP'S STABLE, HR AVG 130, NG TUBE CLAMPED T/O SHIFT, PT DENIES NAUSEA, REQUESTING FOOD & WATER T/O SHIFT, SLEPT MOSTLY T/O THE SHIFT, SLEEPING AT THIS TIME, CALL LIGHT IN [facility], WILL CONT TO MONITOR UNTIL REPORT GIVEN TO DAY RN.
[2021-01-03 05:49] LABS: Albumin, Blood 2.9 g/dL (3.4-5.0); Anion Gap 1 mmol/L (6-16); Blood Urea Nitrogen 28 mg/dL (8-24); Bun/Creatinine Ratio 38.8 (12.0-20.0); CO2, Blood 43 mmol/L (21-32); Chloride, Blood 92 mmol/L (98-108); Creatinine, Blood 0.72 mg/dL (0.60-1.20); Glomerular Filtration Rate >60 (60-); Glucose, Blood 172 mg/dL (70-99); Phosphorus, Blood 3.8 mg/dL (2.5-4.9); Potassium, Blood 4.3 mmol/L (3.5-5.5); Sodium, Blood 136 mmol/L (136-145)
--- NOTE | 2021-01-03 11:19 | NUR ---
TRANSFER NOTE PT ALERT AND ORIENTED TO TIME, PLACE, SITUATION; PATIENT IS FORGETFUL AT TIMES. PT WAS ON 4L O2 VIA NC AND SATURATIONS WERE AT 96%. HR REMAINED AT 140 B/PIN AND WAS ASYMPTOMATIC. ALL OTHER VITAL SIGNS REMAINED STABLE UPON TRANSFER. HAND OFF REPORT GIVEN TO JOSE GAMBINO ON MEDICAL FLOOR. THIS NURSE INFORMED JOSE GAMBINO OF BLOOD IN NARES OF PATIENT UPON NG TUBE REMOVAL PRIOR TO TRANSFER. PT APPEARED TO HAVE RESIDUAL BLOOD FROM A BLOODY NOSE. NOSE WAS NOT ACTIVLY BLEEDING. ALL OF THE PATIENT BELONGINGS WERE WITH PATIENT UPON TRANSFER. PATIENT LEFT PCU ROOM 1030 IN HOSPITAL BED ASSISTED BY PRABHU GAMBINO.
--- NOTE | 2021-01-03 12:55 | NUR ---
ARRIVES FROM U AROUND 1045. SLIDER USED. ON 4 LPM VIA N/C WITH SATS MID TO HIGH 90'S. WIFI SAT MONITOR HOOKED UP. DROWSEY. LOWER EXT COOL. GENERALIZED EDEMA. SCROTAL AREA WITH INCREASE EDEMA. PICC RT UPPER ARM AND PATENT. IV LEFT A.C.PATENT. TELE ON. LUNGS COARSE UPPER, DIM LOWER. COOPERATIVE. ORIENTED TO ROOM AND CALL SYSTEM. [facility]
--- NOTE | 2021-01-03 18:40 | NUR ---
ALERT. ORIENTED. ON 4LPM WITH SATS IN 90'S. BASELINE IS NO OXYGEN. INTERMITTENT COUGH.PICC RT ARM. IV LT A.C. TOLERATING CLEAR LIQUIDS. LR TO GRAVITY. NYSTATIN POWDER TO SCROTAL AREA W AREA SLIGHTLY ELEVATED. NONPRODUCTIVE COUGH. WCTM
[2021-01-04 06:11] LABS: BASOPHILS PERCENT AUTO 0 % (0-2); EOSINOPHILS PERCENT AUTO 0 % (0-6); Hematocrit 41.3 % (37.0-53.0); Hemoglobin 12.7 g/dL (13.5-17.5); IMMATURE GRAN ABSOLUTE AUTO 0.02 K/mm3 (0.00-0.10); IMMATURE GRAN PERCENT AUTO 0 % (0-1); LYMPHOCYTES ABSOLUTE AUTO 1.04 K/mm3 (0.84-5.20); LYMPHOCYTES PERCENT AUTO 14 % (21-46); MONOCYTES ABSOLUTE AUTO 0.82 K/mm3 (0.16-1.47); MONOCYTES PERCENT AUTO 11 % (4-13); Mean Corpuscular HGB 28.5 pg (26.0-34.0); Mean Corpuscular HGB Conc 30.8 g/dL (31.5-36.5); Mean Corpuscular Volume 93 fL (80-100); Mean Platelet Volume 11.3 fL (9.1-12.4); NEUTROPHILS ABSOLUTE AUTO 5.54 K/mm3 (1.96-9.15); NEUTROPHILS PERCENT AUTO 75 % (41-73); Platelet Count 215 K/mm3 (150-400); RDW Coefficient Variation 13.8 % (11.7-14.2); RDW Standard Deviation 47.3 fL (35.1-46.3); Red Blood Cell Count 4.46 M/mm3 (4.30-5.90); White Blood Cell Count 7.42 K/mm3 (4.00-11.30)
[2021-01-04 06:36] LABS: Albumin, Blood 2.9 g/dL (3.4-5.0); Blood Urea Nitrogen 30 mg/dL (8-24); Bun/Creatinine Ratio 45.3 (12.0-20.0); Calcium, Blood 8.3 mg/dL (8.5-10.1); Chloride, Blood 87 mmol/L (98-108); Creatinine, Blood 0.66 mg/dL (0.60-1.20); Glomerular Filtration Rate >60 (60-); Glucose, Blood 216 mg/dL (70-99); Magnesium, Blood 1.5 mg/dL (1.6-2.4); Phosphorus, Blood 2.7 mg/dL (2.5-4.9); Sodium, Blood 133 mmol/L (136-145)
[2021-01-04 06:43] LABS: Anion Gap Unable to Calculate mmol/L (6-16); CO2, Blood >45 mmol/L (21-32)
--- NOTE | 2021-01-04 08:06 | NUR ---
SHIFT SUMMARY PT HAS BEEN IN SUSTAINED A-FLUTTER IN THE 140'S. TELEMETRY AWARE. RN GAVE PRN METOPROLOL 5MG FOR PARAMETER, SUSTAINED HR >120. AT 0500, PT WAS NOTED TO HAVE AUDIBLE WHEEZING AND COARSE LUNG SOUNDS, AND SATS DROPPED DOWN TO MID 80'S. RN INCREASED OXYGEN FROM 4LPM VIA NC TO 9LPM UNTIL OXYGEN SATS INCREASED TO 92-94%. RN THEN DECREASED O2 TO 6LPM, WHERE PT HAS MAINTAINED HIS SATS ABOVE 92%. HE IS CONFUSED, AND IN PAIN R/T A SWOLLEN SCROTUM. PRN PAIN MEDICATION ADMINISTERED. AT 0645, CRITICAL LAB VALUE OF CO2 >45 WAS NOTED. REPORTED TO CHARGE NURSE. LR IN PLACE, DRAINING YELLOW URINE. IV ACCESS VIA LEFT AC.
--- NOTE | 2021-01-04 14:41 | NUR ---
Spiritual Care visit provided. Pt seemed lethargic and apathetic. Limited level of engagement. I provided encouragement; patient verbalized appreciation.
--- NOTE | 2021-01-04 20:17 | NUR ---
SHIFT SUMMARY: NO ACUTE CHANGES TO REPORT THIS SHIFT. PT A&O X2-3; HX METH; CALM AND COOPERATIVE WITH CARE. LR IN PLACE; PATENT & DRAINING. TELE IN PLACE; CHINTAN IN 130s; AWARE; CARDIAC MEDS GIVEN. REPORT GIVEN TO ONCOMING RN.
--- NOTE | 2021-01-05 04:27 | NUR ---
SHIFT SUMMARY ADMITTED FOR COVID+. DNR CODE. PICC LINE IN RUE. PLAN IS FOR POSSIBLE DC TODAY. LR IN PLACE. CLEAR LIQUID DIET. IV METOPROLOL GIVEN AND AMIODORONE. 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
[2021-01-05 05:44] LABS: BASOPHILS ABSOLUTE AUTO 0.01 K/mm3 (0.00-0.23); BASOPHILS PERCENT AUTO 0 % (0-2); EOSINOPHILS PERCENT AUTO 0 % (0-6); IMMATURE GRAN ABSOLUTE AUTO 0.03 K/mm3 (0.00-0.10); IMMATURE GRAN PERCENT AUTO 0 % (0-1); LYMPHOCYTES ABSOLUTE AUTO 0.94 K/mm3 (0.84-5.20); LYMPHOCYTES PERCENT AUTO 12 % (21-46); MONOCYTES ABSOLUTE AUTO 0.77 K/mm3 (0.16-1.47); MONOCYTES PERCENT AUTO 10 % (4-13); Mean Corpuscular HGB 28.5 pg (26.0-34.0); Mean Corpuscular HGB Conc 31.7 g/dL (31.5-36.5); Mean Corpuscular Volume 90 fL (80-100); NEUTROPHILS ABSOLUTE AUTO 6.27 K/mm3 (1.96-9.15); NEUTROPHILS PERCENT AUTO 78 % (41-73); Platelet Count 208 K/mm3 (150-400); RDW Coefficient Variation 13.8 % (11.7-14.2); RDW Standard Deviation 45.3 fL (35.1-46.3); Red Blood Cell Count 4.56 M/mm3 (4.30-5.90); White Blood Cell Count 8.02 K/mm3 (4.00-11.30)
[2021-01-05 05:56] LABS: Albumin, Blood 2.9 g/dL (3.4-5.0); Blood Urea Nitrogen 29 mg/dL (8-24); Calcium, Blood 8.2 mg/dL (8.5-10.1); Chloride, Blood 87 mmol/L (98-108); Creatinine, Blood 0.68 mg/dL (0.60-1.20); Glomerular Filtration Rate >60 (60-); Glucose, Blood 209 mg/dL (70-99); Phosphorus, Blood 2.2 mg/dL (2.5-4.9); Potassium, Blood 3.9 mmol/L (3.5-5.5); Sodium, Blood 133 mmol/L (136-145)
[2021-01-05 05:57] LABS: Anion Gap Unable to Calculate mmol/L (6-16)
[2021-01-05 05:58] LABS: CO2, Blood >45 mmol/L (21-32)
--- NOTE | 2021-01-05 18:31 | NUR ---
NO ACUTE CHANGES. PT HAS CHRONIC A FLUTTER. HR 130, METOPROLOL GIVEN. PT RESTED MOST OF SHIFT. PT REMAINS ON CLEAR LIQUID DIET. NO COMPLAINTS NOTED.
--- NOTE | 2021-01-06 04:16 | NUR ---
SHIFT SUMMARY ADMITTED FOR COVID+. DNR CODE. IV ANTIBIOTICS ARE SCHEDULED. PLAN IS FOR DC WHEN STABLE. LR IN PLACE. HE HAS NOT BEEN AMBULATING. HE HAD A NOSEBLEED THIS SHIFT. HE IS ON XARELTO. HE IS MORE ANXIOUS THIS SHIFT, PRESSING HIS CALL BUTTON FREQUENTLY FOR SMALL NEEDS. HE DID DESATURATE THIS SHIFT TOMID 80'S %. WE TITRATED HIM UP TO 8 LPM O2 FOR AN HOUR. WE WERE ABLE TO TITRATE HIM BACK DOWN TO 4 LPM O2.
[2021-01-06 06:34] LABS: BASOPHILS PERCENT AUTO 0 % (0-2); EOSINOPHILS PERCENT AUTO 0 % (0-6); Hematocrit 40.5 % (37.0-53.0); Hemoglobin 12.7 g/dL (13.5-17.5); IMMATURE GRAN ABSOLUTE AUTO 0.03 K/mm3 (0.00-0.10); IMMATURE GRAN PERCENT AUTO 0 % (0-1); LYMPHOCYTES ABSOLUTE AUTO 0.57 K/mm3 (0.84-5.20); LYMPHOCYTES PERCENT AUTO 7 % (21-46); MONOCYTES PERCENT AUTO 10 % (4-13); Mean Corpuscular HGB 28.3 pg (26.0-34.0); Mean Corpuscular HGB Conc 31.4 g/dL (31.5-36.5); Mean Corpuscular Volume 90 fL (80-100); Mean Platelet Volume 11.4 fL (9.1-12.4); NEUTROPHILS PERCENT AUTO 83 % (41-73); Platelet Count 219 K/mm3 (150-400); RDW Standard Deviation 46.4 fL (35.1-46.3); Red Blood Cell Count 4.48 M/mm3 (4.30-5.90)
[2021-01-06 07:07] LABS: Blood Urea Nitrogen 35 mg/dL (8-24); Calcium, Blood 8.7 mg/dL (8.5-10.1); Chloride, Blood 84 mmol/L (98-108); Creatinine, Blood 0.66 mg/dL (0.60-1.20); Glomerular Filtration Rate >60 (60-); Glucose, Blood 334 mg/dL (70-99); Phosphorus, Blood 4.3 mg/dL (2.5-4.9); Sodium, Blood 131 mmol/L (136-145)
[2021-01-06 07:14] LABS: Anion Gap Unable to Calculate mmol/L (6-16)
[2021-01-06 07:15] LABS: CO2, Blood >45 mmol/L (21-32)
--- NOTE | 2021-01-06 18:24 | NUR ---
PT HAS RESTED MOST OF THE DAY. BLOOD THINNERS HELD DUE TO NOSE BLEED LAST NIGHT AND PERIODS OF BLEEDING ON AND OFF THIS SHIFT. PT IS ALERT AND ABLE TO EXPRESS ANY NEEDS. HE REMAINS ON 4L O2. NO COMPLAINTS OF PAIN, SOB, NVD. PT HAS HAD CATH REMOVED AND HAS VOIDED
[2021-01-07 06:59] LABS: Albumin, Blood 2.5 g/dL (3.4-5.0); Blood Urea Nitrogen 28 mg/dL (8-24); Bun/Creatinine Ratio 46.5 (12.0-20.0); Calcium, Blood 8.2 mg/dL (8.5-10.1); Chloride, Blood 87 mmol/L (98-108); Glomerular Filtration Rate >60 (60-); Glucose, Blood 288 mg/dL (70-99); Magnesium, Blood 1.9 mg/dL (1.6-2.4); Phosphorus, Blood 3.6 mg/dL (2.5-4.9); Potassium, Blood 3.8 mmol/L (3.5-5.5); Sodium, Blood 132 mmol/L (136-145)
[2021-01-07 07:04] LABS: Anion Gap Unable to Calculate mmol/L (6-16)
[2021-01-07 07:06] LABS: CO2, Blood >45 mmol/L (21-32)
[2021-01-07] MEDS ORDERED: PACERONE100 M1 PO (11:58)
[2021-01-07] MEDS ORDERED: DEXA4 PO (11:59)
[2021-01-07] MEDS ORDERED: BASAGLAR K100 UNIT/6 SC (12:00)
[2021-01-07] MEDS ORDERED: HUMALOG KW100 UNIT/1 SC (12:02)
--- NOTE | 2021-01-07 15:05 | NUR ---
D/C NOTE. D/C ORDERS RECEIVED AND IMPLEMENTED. PICC BRANDT PICC LINE REMOVED BY PLANT TECHNICIAN/CONTROL ROOM OPERATOR, LAC PERIPHEAL IV REMOVED INTACT. D/C PACKET PREPARED AND SENT WITH PT. REPORTS CALLED TO RN @ [facility]. PT TRANSPORTED VIA W/C VAN TO [facility] AT 12:20.
== END 2021-01-07 12:43 | DRG 177 ==
LOC: ER 14:49 → MEDS 14:50 → ICUE 12-31 08:27 → MEDS 12-31 08:27 → ICUE 12-31 11:25 → PCU 01-02 17:02 → MEDS 01-03 10:32
PROVIDERS: Emergency Medicine; Family Medicine; Hospitalist; Internal Medicine Critical Care Medicine; ADMIT Family Medicine
PROC: 3E033XZ Introduction of Vasopressor into Peripheral Vein, Percutaneous Approach (ICD-10-PCS; principal; 2020-12-31)
PROC: 3E0333Z Introduction of Anti-inflammatory into Peripheral Vein, Percutaneous Approach (ICD-10-PCS; 2020-12-31)
PROC: XW033E5 Introduction of Remdesivir Anti-infective into Peripheral Vein, Percutaneous Approach, New Technology Group 5 (ICD-10-PCS; 2020-12-31)
PROC: 8E0ZXY6 Isolation (ICD-10-PCS; 2020-12-31)
PROC: 02HV33Z Insertion of Infusion Device into Superior Vena Cava, Percutaneous Approach (ICD-10-PCS; 2020-12-31)
PROC: 5A09357 Assistance with Respiratory Ventilation, Less than 24 Consecutive Hours, Continuous Positive Airway Pressure (ICD-10-PCS; 2020-12-31)
DX: U07.1 COVID-19 (principal); J12.82 Pneumonia due to coronavirus disease 2019; J96.02 Acute respiratory failure with hypercapnia; J96.01 Acute respiratory failure with hypoxia; Z66 Do not resuscitate; I50.43 Acute on chronic combined systolic (congestive) and diastolic (congestive) heart failure; I48.92 Unspecified atrial flutter; N39.0 Urinary tract infection, site not specified; I42.7 Cardiomyopathy due to drug and external agent; R04.0 Epistaxis; I95.9 Hypotension, unspecified; B96.20 Unspecified Escherichia coli [E. coli] as the cause of diseases classified elsewhere; I27.20 Pulmonary hypertension, unspecified; J45.909 Unspecified asthma, uncomplicated; F15.10 Other stimulant abuse, uncomplicated; T43.624A Poisoning by amphetamines, undetermined, initial encounter; E11.9 Type 2 diabetes mellitus without complications; E66.9 Obesity, unspecified; Z68.25 Body mass index [BMI] 25.0-25.9, adult; E78.5 Hyperlipidemia, unspecified; I11.0 Hypertensive heart disease with heart failure; F10.10 Alcohol abuse, uncomplicated; F17.210 Nicotine dependence, cigarettes, uncomplicated; Z88.0 Allergy status to penicillin; Z91.030 Bee allergy status; Z71.6 Tobacco abuse counseling; Z79.82 Long term (current) use of aspirin; Z79.899 Other long term (current) drug therapy; Y92.9 Unspecified place or not applicable
CPT/HCPCS: 36415; 36569; 51702; 71045; 80048; 80053; 80069; 81001; 82803; 82947; 83605; 83735; 83880; 84100; 84484; 85025; 87040; 87077; 87086; 87186; 93005; 93010; 94660; 94762; 96374-59; 96375-59; 96376; 96376-59; 97110; 97161; 97166; 97530; 99285-25; A9270; C1751; G0378; J0282; J1100; J1650; J1815; J1940; J1956; J2060; J2405; J3475; J7030; J7040; J7050; J7060

== ENCOUNTER 2021-01-08 09:04 | Emergency (ER) | payer OTHER ==
[~2021-01-08] VITALS: Ht 182.9 cm; Wt 77.1 kg
[~2021-01-08 09:04] MED LIST changes: +BASAGLAR K100 UNIT/6 SC; +DEXA4 PO; +HUMALOG KW100 UNIT/1 SC; +PACERONE100 M1 PO
== END 2021-01-08 11:47 | disposition home or self-care (01) ==
LOC: ER 09:04
DX: U07.1 COVID-19 (principal); J45.909 Unspecified asthma, uncomplicated; I50.9 Heart failure, unspecified; E11.9 Type 2 diabetes mellitus without complications; F17.210 Nicotine dependence, cigarettes, uncomplicated; Z79.899 Other long term (current) drug therapy; Z79.82 Long term (current) use of aspirin; Z79.4 Long term (current) use of insulin
CPT/HCPCS: 36415; 93005; 93010; 99285-25

== ENCOUNTER 2021-01-27 15:40 | Inpatient (IN) | payer OTHER ==
[~2021-01-27] VITALS: Ht 182.9 cm; Wt 101.6 kg
[2021-01-27 16:03] LABS: BASOPHILS ABSOLUTE AUTO 0.03 K/mm3 (0.00-0.23); BASOPHILS PERCENT AUTO 0 % (0-2); EOSINOPHILS ABSOLUTE AUTO 0.01 K/mm3 (0.00-0.68); EOSINOPHILS PERCENT AUTO 0 % (0-6); Hematocrit 31.3 % (37.0-53.0); Hemoglobin 10.5 g/dL (13.5-17.5); IMMATURE GRAN ABSOLUTE AUTO 0.02 K/mm3 (0.00-0.10); IMMATURE GRAN PERCENT AUTO 0 % (0-1); LYMPHOCYTES ABSOLUTE AUTO 0.74 K/mm3 (0.84-5.20); LYMPHOCYTES PERCENT AUTO 9 % (21-46); MONOCYTES ABSOLUTE AUTO 0.83 K/mm3 (0.16-1.47); MONOCYTES PERCENT AUTO 10 % (4-13); Mean Corpuscular HGB Conc 33.5 g/dL (31.5-36.5); Mean Corpuscular Volume 87 fL (80-100); Mean Platelet Volume 10.6 fL (9.1-12.4); NEUTROPHILS ABSOLUTE AUTO 6.33 K/mm3 (1.96-9.15); NEUTROPHILS PERCENT AUTO 80 % (41-73); Platelet Count 224 K/mm3 (150-400); RDW Coefficient Variation 15.8 % (11.7-14.2); RDW Standard Deviation 47.8 fL (35.1-46.3); Red Blood Cell Count 3.62 M/mm3 (4.30-5.90); White Blood Cell Count 7.96 K/mm3 (4.00-11.30)
[2021-01-27 16:27] LABS: Alanine Aminotransfer (ALT/SGP 168 U/L (12-78); Albumin, Blood 2.9 g/dL (3.4-5.0); Albumin/Globulin Ratio 0.8 (0.8-1.8); Alk Phos 64 U/L (50-136); Anion Gap 3 mmol/L (6-16); Aspartate Aminotrans (AST/SGOT 53 U/L (12-37); Bilirubin, Total 0.9 mg/dL (0.1-1.0); Blood Urea Nitrogen 18 mg/dL (8-24); Bun/Creatinine Ratio 27.7 (12.0-20.0); CO2, Blood 31 mmol/L (21-32); Calcium, Blood 8.1 mg/dL (8.5-10.1); Chloride, Blood 98 mmol/L (98-108); Creatinine, Blood 0.65 mg/dL (0.60-1.20); Globulin, Blood 3.6 g/dL (2.2-4.0); Glomerular Filtration Rate >60 (60-); Glucose, Blood 233 mg/dL (70-99); Potassium, Blood 3.9 mmol/L (3.5-5.5); Sodium, Blood 132 mmol/L (136-145); Total Protein, Blood 6.5 g/dL (6.4-8.2); Troponin I <0.015 ng/mL (0.000-0.040)
[2021-01-27 17:03] LABS: SARS-Cov-2 (COVID-19) PCR, MMC NEGATIVE (NEGATIVE)
--- NOTE | 2021-01-28 04:30 | NUR ---
PATIENT WAS TRANSFERED FROM ER THIS PM, RN TO RN REPORT RECEIVED. PATIENT WAS ADMITTED FOR SHORTNESS OF BREATH WITH BILATERAL LOWER LEGS EDEMA. ACCORDING TO RN RN REPORT PATIENT HAS NO PE.PATIENT IS A DNR. DNR WRIST BAND PLACED TO PATIENTS RIGHT HAND. PATIENT IS ON 02 AT 2L VIA NASAL CANULA. PATIENT IS COVID NEGATIVE, IV SALIN LOCK TO LEFT HAND. PATIENT DENIES PAIN OR ANY DISCOMFORT. PATIENT DENIES CHEST PAIN OR SHORTNESS OF BREATH AT THIS TIME. PATIENTS VITAL SIGNS AND NEURO SIGNS ARE WNL. LUNG SOUNDS ARE CLEAR TO AUSCULTATION. PATIENT BOWEL SOUNDS ARE POSITIVE AND EQUAL TO ALL FOUR QUANDRANS. PATIENT REPORTS LAST BM WAS YESTERDAY. PATIENT IS USING URINAL WELL, VOIDED 600CC. PATIENT IS ON IV LAXIS AND WAS DUE UPON ARRIVAL. UPON ARRIVAL PATIENT REPORTED HE HAS NOT HAD ANY THING TO EAT. SANDWICH OFFERED AND PATIENT EAT WELL. CALL LIGHT GIVE TO PATIENT AND BED IN LOW POSITION. PATIENT IS SLEEPING WELL AND SOUND, NO ISSUES OR COMPLAIN VOICED.
[2021-01-28 05:12] LABS: BASOPHILS ABSOLUTE AUTO 0.03 K/mm3 (0.00-0.23); BASOPHILS PERCENT AUTO 0 % (0-2); EOSINOPHILS ABSOLUTE AUTO 0.07 K/mm3 (0.00-0.68); EOSINOPHILS PERCENT AUTO 1 % (0-6); Hematocrit 31.3 % (37.0-53.0); Hemoglobin 10.2 g/dL (13.5-17.5); IMMATURE GRAN ABSOLUTE AUTO 0.02 K/mm3 (0.00-0.10); IMMATURE GRAN PERCENT AUTO 0 % (0-1); LYMPHOCYTES PERCENT AUTO 11 % (21-46); MONOCYTES ABSOLUTE AUTO 1.06 K/mm3 (0.16-1.47); MONOCYTES PERCENT AUTO 13 % (4-13); Mean Corpuscular HGB 28.7 pg (26.0-34.0); Mean Corpuscular HGB Conc 32.6 g/dL (31.5-36.5); Mean Corpuscular Volume 88 fL (80-100); Mean Platelet Volume 10.7 fL (9.1-12.4); NEUTROPHILS ABSOLUTE AUTO 5.94 K/mm3 (1.96-9.15); NEUTROPHILS PERCENT AUTO 74 % (41-73); Platelet Count 240 K/mm3 (150-400); RDW Coefficient Variation 16.1 % (11.7-14.2); Red Blood Cell Count 3.56 M/mm3 (4.30-5.90); White Blood Cell Count 8.02 K/mm3 (4.00-11.30)
[2021-01-28 05:34] LABS: Alanine Aminotransfer (ALT/SGP 137 U/L (12-78); Albumin, Blood 2.9 g/dL (3.4-5.0); Albumin/Globulin Ratio 0.9 (0.8-1.8); Alk Phos 60 U/L (50-136); Anion Gap 3 mmol/L (6-16); Aspartate Aminotrans (AST/SGOT 31 U/L (12-37); Bilirubin, Total 0.6 mg/dL (0.1-1.0); Blood Urea Nitrogen 13 mg/dL (8-24); Bun/Creatinine Ratio 20.5 (12.0-20.0); CO2, Blood 34 mmol/L (21-32); Calcium, Blood 8.1 mg/dL (8.5-10.1); Chloride, Blood 99 mmol/L (98-108); Creatinine, Blood 0.63 mg/dL (0.60-1.20); Globulin, Blood 3.3 g/dL (2.2-4.0); Glomerular Filtration Rate >60 (60-); Glucose, Blood 181 mg/dL (70-99); Potassium, Blood 3.9 mmol/L (3.5-5.5); Sodium, Blood 136 mmol/L (136-145); Total Protein, Blood 6.2 g/dL (6.4-8.2)
--- NOTE | 2021-01-28 18:37 | NUR ---
PATIENT STATES TOOTH "BROKE AND POPPED". BROWN/PINK TINGED FLUID IN CUP, THAT PATIENT STATES CAME FROM THE AREA, AND TASTES BAD. FOUL ODOR. PATIENT WAS MID EATING DINNER AT THE TIME. MOUTH RINSED WITH WATER THOROUGHLY AND FOLLOWED WITH MOUTHWASH. DR. GARCIA NOTIFIED.
[2021-01-29 05:05] LABS: BASOPHILS ABSOLUTE AUTO 0.03 K/mm3 (0.00-0.23); BASOPHILS PERCENT AUTO 1 % (0-2); EOSINOPHILS ABSOLUTE AUTO 0.07 K/mm3 (0.00-0.68); EOSINOPHILS PERCENT AUTO 1 % (0-6); Hematocrit 33.7 % (37.0-53.0); Hemoglobin 10.6 g/dL (13.5-17.5); IMMATURE GRAN ABSOLUTE AUTO 0.02 K/mm3 (0.00-0.10); IMMATURE GRAN PERCENT AUTO 0 % (0-1); LYMPHOCYTES ABSOLUTE AUTO 1.14 K/mm3 (0.84-5.20); LYMPHOCYTES PERCENT AUTO 18 % (21-46); MONOCYTES PERCENT AUTO 12 % (4-13); Mean Corpuscular HGB Conc 31.5 g/dL (31.5-36.5); Mean Corpuscular Volume 92 fL (80-100); Mean Platelet Volume 10.3 fL (9.1-12.4); NEUTROPHILS PERCENT AUTO 68 % (41-73); Platelet Count 261 K/mm3 (150-400); RDW Coefficient Variation 16.1 % (11.7-14.2); RDW Standard Deviation 53.2 fL (35.1-46.3); Red Blood Cell Count 3.66 M/mm3 (4.30-5.90); White Blood Cell Count 6.46 K/mm3 (4.00-11.30)
[2021-01-29 05:37] LABS: Anion Gap 1 mmol/L (6-16); Blood Urea Nitrogen 17 mg/dL (8-24); Bun/Creatinine Ratio 21.8 (12.0-20.0); CO2, Blood 37 mmol/L (21-32); Calcium, Blood 8.4 mg/dL (8.5-10.1); Chloride, Blood 97 mmol/L (98-108); Creatinine, Blood 0.78 mg/dL (0.60-1.20); Glomerular Filtration Rate >60 (60-); Glucose, Blood 79 mg/dL (70-99); Potassium, Blood 4.6 mmol/L (3.5-5.5); Sodium, Blood 135 mmol/L (136-145)
--- NOTE | 2021-01-29 06:35 | NUR ---
POWER CLEANER OPERATOR SUMMARY PATIENT STILL EDEMATOUS ON 2L NC. HE DID NOT LODGE ANY COMPLAINT OVERNIGHT. WILL CONTINUE TO MONITOR
[2021-01-29] MEDS ORDERED: NICODERM CQ1 EA11 TOP (11:43)
[2021-01-29] MEDS ORDERED: CLIN150 PO (11:45)
== END 2021-01-29 16:28 | disposition home or self-care (01) | DRG 293 ==
LOC: ER 15:40 → MEDS 15:41 → ENPENDDIS 01-29 11:15 → MEDS 01-29 16:28
PROVIDERS: Emergency Medicine; Family Medicine; ADMIT Internal Medicine
DX: I11.0 Hypertensive heart disease with heart failure (principal); I42.7 Cardiomyopathy due to drug and external agent; Z20.822 Contact with and (suspected) exposure to COVID-19; I50.23 Acute on chronic systolic (congestive) heart failure; K04.7 Periapical abscess without sinus; Z66 Do not resuscitate; D64.9 Anemia, unspecified; R74.01 Elevation of levels of liver transaminase levels; R79.1 Abnormal coagulation profile; I48.91 Unspecified atrial fibrillation; E11.9 Type 2 diabetes mellitus without complications; J45.909 Unspecified asthma, uncomplicated; F17.210 Nicotine dependence, cigarettes, uncomplicated; Z88.0 Allergy status to penicillin; Z91.030 Bee allergy status; Z79.82 Long term (current) use of aspirin; Z86.16 Personal history of COVID-19; Z79.4 Long term (current) use of insulin; Z79.899 Other long term (current) drug therapy; Z79.01 Long term (current) use of anticoagulants
CPT/HCPCS: 36415; 71045; 71260; 80048; 80053; 82947; 83880; 84484; 85025; 85379; 93005; 93010; 93970; 94640; 94760; 94761; 94762; 96374; 96376; 97110; 97116; 97162; 97166; 97535; 99285-25; A9270; G0378; J1815; J1940; Q9967; U0004

== ENCOUNTER 2021-01-30 12:44 | Inpatient (IN) | payer OTHER ==
[~2021-01-30] VITALS: Ht 182.9 cm; Wt 89.4 kg
[~2021-01-30 12:44] MED LIST changes: +CLIN150 PO; +NICODERM CQ1 EA11 TOP
[2021-01-30 13:06] LABS: BASOPHILS ABSOLUTE AUTO 0.04 K/mm3 (0.00-0.23); BASOPHILS PERCENT AUTO 1 % (0-2); EOSINOPHILS ABSOLUTE AUTO 0.04 K/mm3 (0.00-0.68); EOSINOPHILS PERCENT AUTO 1 % (0-6); Hematocrit 35.7 % (37.0-53.0); Hemoglobin 11.4 g/dL (13.5-17.5); IMMATURE GRAN ABSOLUTE AUTO 0.01 K/mm3 (0.00-0.10); IMMATURE GRAN PERCENT AUTO 0 % (0-1); LYMPHOCYTES PERCENT AUTO 17 % (21-46); MONOCYTES PERCENT AUTO 13 % (4-13); Mean Corpuscular HGB 28.6 pg (26.0-34.0); Mean Corpuscular HGB Conc 31.9 g/dL (31.5-36.5); Mean Corpuscular Volume 90 fL (80-100); NEUTROPHILS ABSOLUTE AUTO 5.31 K/mm3 (1.96-9.15); NEUTROPHILS PERCENT AUTO 69 % (41-73); Platelet Count 348 K/mm3 (150-400); RDW Coefficient Variation 16.5 % (11.7-14.2); RDW Standard Deviation 52.5 fL (35.1-46.3); Red Blood Cell Count 3.98 M/mm3 (4.30-5.90)
[2021-01-30 13:24] LABS: Anion Gap 3 mmol/L (6-16); Blood Urea Nitrogen 19 mg/dL (8-24); Bun/Creatinine Ratio 27.3 (12.0-20.0); CO2, Blood 35 mmol/L (21-32); Calcium, Blood 8.6 mg/dL (8.5-10.1); Chloride, Blood 96 mmol/L (98-108); Glomerular Filtration Rate >60 (60-); Glucose, Blood 267 mg/dL (70-99); Potassium, Blood 4.3 mmol/L (3.5-5.5); Sodium, Blood 134 mmol/L (136-145); Troponin I <0.015 ng/mL (0.000-0.040)
[2021-01-30 13:35] LABS: Base Excess Venous 11.2 mmol/L; Bicarbonate Venous 32.4 mmol/L (24.0-30.0); PCO2 Venous 66.1 mmHg (38-42); pH Blood Venous 7.35 (7.34-7.37)
[2021-01-30 16:42] LABS: Percent Saturation 11.5 % (20.0-50.0)
[2021-01-30 18:15] LABS: SARS-Cov-2 (COVID-19) PCR, MMC NEGATIVE (NEGATIVE)
--- NOTE | 2021-01-30 18:44 | NUR ---
ARRIVAL TO PCU/CARE ASSUMPTION/SHIFT SUMMARY PATIENT ARRIVED FROM THE ED BY EMILIANO. PATIENT WAS POSITION ONTO PCU BED VIA SLIDER SHEET. A/OX4. VSS. TELE SINUS. SPO2 >95% ON BIPAP. PATIENT ORIENTATED TO THE ROOM AND CALL LIGHT. PATIENT HAS GENERALIZED SWELLING FROM ABD AND DOWN. 3+ EDEMA BLE. LUNG SOUNDS COARSE, WHEEZY, AND TIGHT. PATIENT REPORTS NO CHEST PAIN, PAIN, OR SOB. PATIENT HAS A STAGE 1 PRESSURE SORE TO BOTTOM. MEPLIX IN PLACE AND CREAM APPLIED. PICTURES IN CHART. CALL LIGHT WITHIN REACH AND BED IN LOWEST POSITION AND PATIENT POSITIONED ON LEFT SIDE. WILL CONTINUE TO MONITOR AND PROVIDE CARE UNTIL HAND OFF WITH NEXT SHIFT.
[2021-01-30 22:04] LABS: Base Excess Venous 12.4 mmol/L; Bicarbonate Venous 33.4 mmol/L (24.0-30.0); PCO2 Venous 59.6 mmHg (38-42); PO2 Venous 39.2 mmHg (38-42)
--- NOTE | 2021-01-30 23:03 | NUR ---
ASSUMED CARE PT ALERT AND ORIENTED. VITALS STABLE ON BIPAP 14/6 FIO2 40% WITH SATS ABOVE 95%. PT WAS PUT ON 15L HIFLOW NC SO THAT HE WAS ABLE TO EAT. WAS ABLE TO TOLERATE WELL. LOWER EXT WERE ELEVATED. CALL LIGHT IS WITHIN REACH. WILL CONTINUE TO MONITOR.
[2021-01-31 04:00] LABS: U Amphetamine Screen Not Detected; U Barbituate Screen Not Detected; U Benzodiazapine Screen Not Detected; U Buprenorphine Screen Not Detected; U Cannabinoids Screen Not Detected; U Cocaine Screen Not Detected; U Methadone Screen Not Detected; U Methamphetamine Screen DETECTED; U Opiates Screen Not Detected; U Oxycodone Screen Not Detected; U Phencyclidine Screen Not Detected; U Propoxyphene Screen Not Detected
[2021-01-31 04:14] LABS: BASOPHILS ABSOLUTE AUTO 0.01 K/mm3 (0.00-0.23); BASOPHILS PERCENT AUTO 0 % (0-2); EOSINOPHILS PERCENT AUTO 0 % (0-6); IMMATURE GRAN ABSOLUTE AUTO 0.02 K/mm3 (0.00-0.10); IMMATURE GRAN PERCENT AUTO 0 % (0-1); LYMPHOCYTES PERCENT AUTO 9 % (21-46); MONOCYTES PERCENT AUTO 4 % (4-13); Mean Corpuscular HGB 28.3 pg (26.0-34.0); Mean Corpuscular HGB Conc 31.6 g/dL (31.5-36.5); Mean Corpuscular Volume 90 fL (80-100); NEUTROPHILS ABSOLUTE AUTO 4.85 K/mm3 (1.96-9.15); NEUTROPHILS PERCENT AUTO 87 % (41-73); Platelet Count 343 K/mm3 (150-400); RDW Coefficient Variation 16.6 % (11.7-14.2); Red Blood Cell Count 4.24 M/mm3 (4.30-5.90); White Blood Cell Count 5.58 K/mm3 (4.00-11.30)
[2021-01-31 04:31] LABS: Alanine Aminotransfer (ALT/SGP 65 U/L (12-78); Albumin, Blood 2.1 g/dL (3.4-5.0); Albumin/Globulin Ratio 0.6 (0.8-1.8); Alk Phos 52 U/L (50-136); Anion Gap 0 mmol/L (6-16); Aspartate Aminotrans (AST/SGOT 10 U/L (12-37); Bilirubin, Total 0.3 mg/dL (0.1-1.0); Blood Urea Nitrogen 16 mg/dL (8-24); Bun/Creatinine Ratio 24.2 (12.0-20.0); CO2, Blood 39 mmol/L (21-32); Chloride, Blood 99 mmol/L (98-108); Creatinine, Blood 0.66 mg/dL (0.60-1.20); Globulin, Blood 3.5 g/dL (2.2-4.0); Glomerular Filtration Rate >60 (60-); Glucose, Blood 244 mg/dL (70-99); Potassium, Blood 4.6 mmol/L (3.5-5.5); Sodium, Blood 138 mmol/L (136-145); Total Protein, Blood 5.6 g/dL (6.4-8.2)
--- NOTE | 2021-01-31 06:21 | NUR ---
SHIFT SUMMARY PT IS ALERT AND ORIENTED X4. NO ACUTE CHANGES T/O THE NIGHT. PT HAS BEEN WEARING BIPAP WITH SETTINGS OF 14/6 40% FIO2 AND SATS OF ABOVE 95%. WHEN OFF BIPAP HE HAS BEEN ABLE TO TOLERATE 15L NC. BP'S HAVE BEEN SOFT, PER TELE AFIB @96. PT HAS BLE +3 AND GENERAL EDEMA, EXTREMETIES ARE ELEVATED PER ORDER. PT DENIES CHEST PAIN OR GENERAL PAIN. USING CALL LIGHT APPROPRIETLY. CALL LIGHT IS WITHIN REACH.
--- NOTE | 2021-01-31 15:45 | NUR ---
SHIFT SUMMARY PT A&OX4, VSS/1LNC/TELE AFIB @ 106 BPM, DENIES SOB/CP/PRESSURE, BLE ELEVATED, AMBER PO WITH GOOD INTAKE, VOIDING WELL WITH URINAL (NEEDS ASSISTANCE WITH PLACEMENT). PLAN TO TRANSFER PT TO MEDICAL FLOOR WITH TELE. WILL REPORT TO NEXT RN.
--- NOTE | 2021-01-31 16:53 | NUR ---
REPORT PROVIDED TO AV GAMBINO. PT TRANSFERRED TO ROOM 307 BED 2.
--- NOTE | 2021-01-31 17:32 | NUR ---
SHIFT SUMMARY PATIENT ALERT AND ORIENTED X4. PATIENT WAS TRANSFERRED TO [facility] FLOOR FROM PCU FLOOR AROUND 1600. PATIENT IS ON TELE AND RUNNING IN THE LOW 100S BPM. PATIENT DENIES CHEST PAIN, SOB. PATIENT DENIES ALL OTHER NEEDS. PATIENT USES URINAL WITH ASSISTANCE. CALL LIGHT IN PLACE. BED IN LOWEST AND LOCKED POSITION. VITAL SIGNS REVIEWED. WILL CONTINUE TO MONITOR UNTIL SHIFT CHANGE.
--- NOTE | 2021-02-01 05:57 | NUR ---
PATIENT IS ALERT AND RESPONSIVE. DENIES PAIN OR DISCOMFORT. CONTINUES ON 02 AT 1L, 02 SAT 94%. PATIENT DID NOT COMPLAINED OF ANY CHEST PAIN OR SOB. BLOOD PRESURE MEDS HELD DUR TO BP OF 90/55. PATIENT ON 1L FREE WATER FLUID RESTRICTIONS.
[2021-02-01 07:59] LABS: Hematocrit 34.3 % (37.0-53.0); Hemoglobin 10.8 g/dL (13.5-17.5); Mean Corpuscular HGB 28.7 pg (26.0-34.0); Mean Corpuscular HGB Conc 31.5 g/dL (31.5-36.5); Mean Corpuscular Volume 91 fL (80-100); Mean Platelet Volume 9.6 fL (9.1-12.4); Platelet Count 336 K/mm3 (150-400); RDW Coefficient Variation 16.6 % (11.7-14.2); RDW Standard Deviation 54.3 fL (35.1-46.3); Red Blood Cell Count 3.76 M/mm3 (4.30-5.90)
[2021-02-01 08:28] LABS: Alanine Aminotransfer (ALT/SGP 55 U/L (12-78); Albumin, Blood 2.4 g/dL (3.4-5.0); Albumin/Globulin Ratio 0.7 (0.8-1.8); Alk Phos 43 U/L (50-136); Anion Gap 0 mmol/L (6-16); Aspartate Aminotrans (AST/SGOT 11 U/L (12-37); Bilirubin, Total 0.5 mg/dL (0.1-1.0); Blood Urea Nitrogen 14 mg/dL (8-24); CO2, Blood 42 mmol/L (21-32); Calcium, Blood 8.2 mg/dL (8.5-10.1); Chloride, Blood 96 mmol/L (98-108); Creatinine, Blood 0.61 mg/dL (0.60-1.20); Globulin, Blood 3.5 g/dL (2.2-4.0); Glomerular Filtration Rate >60 (60-); Glucose, Blood 82 mg/dL (70-99); Potassium, Blood 3.7 mmol/L (3.5-5.5); Sodium, Blood 138 mmol/L (136-145); Total Protein, Blood 5.9 g/dL (6.4-8.2)
--- NOTE | 2021-02-01 16:18 | NUR ---
PATIENT IS ALERT AND ORIENTED AND COOPERATIVE WITH CARE. PATIENT CALLS APPROPRIATELY.ON 1L O2 VIA NC. PATIENT HAS A GOOD APPETITE. USES THE URINAL WITH ASSITANCE. HYPOTENSIVE THIS MORNING SO SOME MEDICATION ORDERS WERE CHANGED BY DR. RIZVI. WILL CONTINUE TO MONITOR
[2021-02-02 05:07] LABS: Hematocrit 34.2 % (37.0-53.0); Hemoglobin 11.1 g/dL (13.5-17.5); Mean Corpuscular HGB 29.1 pg (26.0-34.0); Mean Corpuscular HGB Conc 32.5 g/dL (31.5-36.5); Mean Corpuscular Volume 90 fL (80-100); Platelet Count 342 K/mm3 (150-400); RDW Coefficient Variation 16.8 % (11.7-14.2); RDW Standard Deviation 53.1 fL (35.1-46.3); Red Blood Cell Count 3.82 M/mm3 (4.30-5.90); White Blood Cell Count 8.26 K/mm3 (4.00-11.30)
[2021-02-02 05:25] LABS: Anion Gap 2 mmol/L (6-16); Blood Urea Nitrogen 13 mg/dL (8-24); CO2, Blood 43 mmol/L (21-32); Calcium, Blood 8.9 mg/dL (8.5-10.1); Chloride, Blood 92 mmol/L (98-108); Creatinine, Blood 0.62 mg/dL (0.60-1.20); Glomerular Filtration Rate >60 (60-); Glucose, Blood 130 mg/dL (70-99); Potassium, Blood 3.6 mmol/L (3.5-5.5); Sodium, Blood 137 mmol/L (136-145)
--- NOTE | 2021-02-02 07:27 | NUR ---
SHIFT SUMMARY: AOX3, COOPERATIVE. LS DIMINISHED. ON RA WITH SATS >90%. HYPOTENSIVE THIS AM DOWN TO 89/57, ASYMPTOMATIC. NO COUGH OR CONGESTION. NO PAIN. 2+ EDEMA TO BLE. TELE AFIB. USES URINAL WELL. iNTAKE THIS SHIFT 240, OUTPUT 2650. PULLED IV OUT THIS AM, SEVERAL ATTEMPTS MADE TO PLACE NEW IV WITH NO SUCCESS. INFORMED DAYSHIFT. NO OTHER CHANGES TO REPORT. CALL LIGHT IN REACH.
--- NOTE | 2021-02-02 17:24 | NUR ---
SHIFT SUMMARY 55 Y MALE ADMITTED W/ ACUTE ON CHRONIC SYSTOLIC HEART FAILURE. PT HAS BEEN PLEASEANT AND COOPERATIVE WITH CARE T/O DAY. AFIB-90'S ON TELE, PT HAS DENIED ANY CP OR SOB. MD ADJUSTED A FEW MEDS TODAY FOR BP CONTROL. PT HAS NO IV ACCESS, AWARE AND OK TO LEAVE OUT, IV MEDS CHANGED TO PO. NO BM NOTED FOR 5 DAYS, BOWEL CARE ORDERED AND STARTED TODAY. PT IS HOPEFUL FOR D/C TOMORROW. NO OTHER ACUTE CHANGES THIS SHIFT
--- NOTE | 2021-02-02 22:16 | NUR ---
ASSUMED CARE.UP TO THE BATHROOM WITH FWW. LARGE HARD BM NOTED. LINEN CHANGED. LS CLEAR. NO COUGH OR CONGESTION. MILD DYSPNEA UPON STANDING BUT RESOLVED. 2+ EDEMA. ASYMPTOMATIC HYPOTENSION. HELD METOPROLOL. DRESSING TO COCCYX INTACT. NO PAIN. MEDS ADMINISTERED. CURRENTLY SLEEPING. CALL LIGHT IN REACH.
[2021-02-03 05:27] LABS: Albumin, Blood 2.4 g/dL (3.4-5.0); Blood Urea Nitrogen 14 mg/dL (8-24); Bun/Creatinine Ratio 19.3 (12.0-20.0); Calcium, Blood 9.1 mg/dL (8.5-10.1); Chloride, Blood 90 mmol/L (98-108); Creatinine, Blood 0.73 mg/dL (0.60-1.20); Glomerular Filtration Rate >60 (60-); Glucose, Blood 162 mg/dL (70-99); Phosphorus, Blood 4.2 mg/dL (2.5-4.9); Sodium, Blood 135 mmol/L (136-145)
[2021-02-03 05:40] LABS: Anion Gap Unable to Calculate mmol/L (6-16)
[2021-02-03 05:42] LABS: CO2, Blood >45 mmol/L (21-32)
--- NOTE | 2021-02-03 06:04 | NUR ---
SHIFT SUMMARY: AOX3, COMPLIANT W/ CARE. BM NOTED THIS SHIFT, FIRM, HARD. CONTINUED BOWEL CARE. GOOD APPETITE. VS WNL FOR PATIENT RUNNING 90'S. WITHHELD METOPROLOL. BS 201. BLE EDEMA STILL PRESENT 2+. BNP THIS AM INCREASED TO 1026. CRITICAL CO2 OF >45. SLEPT WELL T/O THE NIGHT. WILL INFORM MD OF CRITICAL LEVEL. WILL CONTINUE TO MONITOR TILL DAYSHIFT ARRIVES.
[2021-02-03] MEDS ORDERED: Midodrine HCl2.5 MG PO (12:50)
--- NOTE | 2021-02-03 16:25 | NUR ---
DISCHARGE SUMMARY: PATIENT DENIED PAIN OR DISCOMFORT THROUGHOUT THE SHIFT. PATIENT SEEMS TO BE FATIGUED BASED ON HIS SLOW AND CAREFUL MOVEMENTS. PATIENT UP TO THE RECLINER FOR THE MORNING. PATIENT DENIES SHORTNESS OF BREATH AT REST OR WITH MOVEMENT. PATIENT DISCHARGED THIS AFTERNOON. DISCHARGE RX FAXED TO [facility] PER PATIENT REQUEST. PATIENT APPOINTMENT MADE AT [facility] BY HIS [employer] AND TRACK AND FIELD COACH. PATIENT DID NOT QUALIFY FOR HOME O2 WITH THE EVALUATION. DISCHARGE INSTRUCTIONS AND EDUCATION PROVIDED TO THE PATIENT AND TO HIS CONTACT SUSIE PER THE PATIENT REQUEST. ALL QUESTIONS AND CONCERNS ADDRESSED. PATIENT DENIED FURTHER NEEDS FOR DISCHARGE. PATIENT DISCHARGED IN WHEELCHAIR WITH RN. PATIENT STABLE AT TIME OF DISCHARGE.
== END 2021-02-03 15:03 | disposition home health service (06) | DRG 291 ==
LOC: ER 12:44 → MEDS 15:52 → SURS 18:23 → MEDS 01-31 16:40
PROVIDERS: Internal Medicine; Student in an Organized Health Care Education/Training Program; ADMIT Hospitalist
DX: I11.0 Hypertensive heart disease with heart failure (principal); J96.01 Acute respiratory failure with hypoxia; I48.92 Unspecified atrial flutter; I48.20 Chronic atrial fibrillation, unspecified; Z20.822 Contact with and (suspected) exposure to COVID-19; Z66 Do not resuscitate; I50.23 Acute on chronic systolic (congestive) heart failure; J45.909 Unspecified asthma, uncomplicated; E11.9 Type 2 diabetes mellitus without complications; F11.10 Opioid abuse, uncomplicated; I42.8 Other cardiomyopathies; K59.00 Constipation, unspecified; K04.7 Periapical abscess without sinus; I87.2 Venous insufficiency (chronic) (peripheral); T40.3X5A Adverse effect of methadone, initial encounter; I42.0 Dilated cardiomyopathy; E78.5 Hyperlipidemia, unspecified; F17.210 Nicotine dependence, cigarettes, uncomplicated; Z86.16 Personal history of COVID-19; Z88.0 Allergy status to penicillin; Z79.4 Long term (current) use of insulin; Z79.899 Other long term (current) drug therapy
CPT/HCPCS: 36415; 71045; 74018; 80048; 80053; 80069; 82607; 82728; 82746; 82803; 82947; 83540; 83550; 83880; 84443; 84484; 85025; 85027; 93005; 93010; 94640; 94660; 94761; 96365; 96375; 99285-25; A9270; J0696; J1815; J1940; J7512; U0004

== ENCOUNTER → 2021-02-12 | Outpatient (CLI) | payer OTHER ==
[~2021-02-12] MED LIST changes: +Midodrine HCl2.5 MG PO
[2021-02-12 17:21] LABS: Albumin, Blood 3.2 g/dL (3.4-5.0); Anion Gap 3 mmol/L (6-16); Blood Urea Nitrogen 19 mg/dL (8-24); Bun/Creatinine Ratio 29.1 (12.0-20.0); CO2, Blood 30 mmol/L (21-32); Calcium, Blood 8.8 mg/dL (8.5-10.1); Chloride, Blood 103 mmol/L (98-108); Creatinine, Blood 0.65 mg/dL (0.60-1.20); Glomerular Filtration Rate >60 (60-); Glucose, Blood 269 mg/dL (70-99); Phosphorus, Blood 3.7 mg/dL (2.5-4.9); Potassium, Blood 5.5 mmol/L (3.5-5.5); Sodium, Blood 136 mmol/L (136-145)
[2021-02-12 17:37] LABS: CHOL/HDL RATIO 2.9; Cholesterol 119 mg/dL (50-200); HDL Cholesterol 41 mg/dL (>39); LDL/HDL RATIO 1.6; Low Density Lipoprotein Chol 67 mg/dL (0-110); Triglycerides 54 mg/dL (30-160); Very Low Density Lipoprot Chol 10 mg/dL (6-32)
== END | disposition home or self-care (01) ==
LOC: LAB 16:22 → LAB SHORT 16:22
PROVIDERS: Family Medicine
DX: E78.5 Hyperlipidemia, unspecified (principal); I50.22 Chronic systolic (congestive) heart failure
CPT/HCPCS: 80061; 80069

== ENCOUNTER 2021-11-09 09:50 | Inpatient (IN) | payer OTHER ==
[~2021-11-09] VITALS: Ht 182.9 cm; Wt 107.5 kg
[2021-11-09 10:53] LABS: BASOPHILS ABSOLUTE AUTO 0.07 K/mm3 (0.00-0.23); BASOPHILS PERCENT AUTO 1 % (0-2); EOSINOPHILS ABSOLUTE AUTO 0.03 K/mm3 (0.00-0.68); EOSINOPHILS PERCENT AUTO 0 % (0-6); Hematocrit 22.1 % (37.0-53.0); Hemoglobin 6.8 g/dL (13.5-17.5); IMMATURE GRAN ABSOLUTE AUTO 0.03 K/mm3 (0.00-0.10); IMMATURE GRAN PERCENT AUTO 0 % (0-1); LYMPHOCYTES ABSOLUTE AUTO 1.16 K/mm3 (0.84-5.20); LYMPHOCYTES PERCENT AUTO 16 % (21-46); MONOCYTES ABSOLUTE AUTO 1.02 K/mm3 (0.16-1.47); MONOCYTES PERCENT AUTO 14 % (4-13); Mean Corpuscular HGB 25.1 pg (26.0-34.0); Mean Corpuscular HGB Conc 30.8 g/dL (31.5-36.5); Mean Corpuscular Volume 82 fL (80-100); Mean Platelet Volume 10.5 fL (9.1-12.4); NEUTROPHILS ABSOLUTE AUTO 5.03 K/mm3 (1.96-9.15); NEUTROPHILS PERCENT AUTO 69 % (41-73); NRBC ABSOLUTE 0.03 K/mm3 (0.00-0.02); NRBC Auto 0.4 /100 WBC (0.0-0.2); Platelet Count 506 K/mm3 (150-400); RDW Standard Deviation 50.4 fL (35.1-46.3); Red Blood Cell Count 2.71 M/mm3 (4.30-5.90); White Blood Cell Count 7.34 K/mm3 (4.00-11.30)
[2021-11-09 11:11] LABS: Albumin, Blood 2.9 g/dL (3.4-5.0); Albumin/Globulin Ratio 0.7 (0.8-1.8); Bilirubin, Total 0.7 mg/dL (0.1-1.0); Bun/Creatinine Ratio 37.8 (12.0-20.0); Calcium, Blood 8.8 mg/dL (8.5-10.1); Creatinine, Blood 0.82 mg/dL (0.60-1.20); Globulin, Blood 4.1 g/dL (2.2-4.0); Potassium, Blood 4.1 mmol/L (3.5-5.5)
[2021-11-09 11:37] LABS: Influenza A, PCR NEGATIVE (NEGATIVE); Influenza B, PCR NEGATIVE (NEGATIVE); Resp Syncytial Virus, PCR NEGATIVE (NEGATIVE); SARS-Cov-2 (COVID-19) PCR, MMC NEGATIVE (NEGATIVE)
[2021-11-09 16:17] LABS: Hematocrit 20.2 % (37.0-53.0); Hemoglobin 6.2 g/dL (13.5-17.5)
--- NOTE | 2021-11-09 19:44 | NUR ---
1840 RECEIVED PT TO RM 341 VIA [facility] FROM ER. PT ABLE TO TX SELF TO BED WITH 1P SBA. RECEIVED REPORT FROM SMILEY GAMBINO. PT TO ER WITH C/O INCREASED SOB X1 WEEK AND INCREASED SWELLING TO LE'S AND ABD. PT ADMITTED WITH CHF AND ASCITES. PT C/O BLACK TARRY STOOLS LAST NIGHT. H/H 6.8 IN ER; SEE CHART. PT NEEDING GI CONSULT, BUT NONE AVAILABLE PER REPORT. PT NOW TO BE TX'D TO [facility] WHEN ARRANGEMENTS MADE. HX OF ASTHMA, CHF, HTN, A-IFB, DM II, HLD. PT ALSO WITH HX OF MARIJUANNA, METH, ALCOHOL, AND SMOKER. PT REPORTED USING 2L O2 BASELINE AT HOME. REPORT GIVEN TO HIEU GAMBINO. CALL LT IN REACH.
--- NOTE | 2021-11-09 21:27 | NUR ---
PT ADMITTED AT SHIFT CHANGE. RECEIVED BED AT [facility] AND PT WAS TX. EMS CREW ARRIVED 2099 AND PT LEFT MEDICAL FLOOR AT 2109. BLOOD STARTED AT 2027 AND WAS STILL TRANSFUSING 125ML/HR AT THE TIME HE LEFT.
== END 2021-11-09 21:07 | disposition short-term general hospital (02) | DRG 377 ==
LOC: ER 09:50 → MEDS 17:53
PROVIDERS: Student in an Organized Health Care Education/Training Program; ADMIT Internal Medicine
PROC: 30233N1 Transfusion of Nonautologous Red Blood Cells into Peripheral Vein, Percutaneous Approach (ICD-10-PCS; principal; 2021-11-09)
PROC: 5A09357 Assistance with Respiratory Ventilation, Less than 24 Consecutive Hours, Continuous Positive Airway Pressure (ICD-10-PCS; 2021-11-09)
DX: K92.2 Gastrointestinal hemorrhage, unspecified (principal); I50.23 Acute on chronic systolic (congestive) heart failure; J96.01 Acute respiratory failure with hypoxia; I11.0 Hypertensive heart disease with heart failure; D50.0 Iron deficiency anemia secondary to blood loss (chronic); I48.91 Unspecified atrial fibrillation; E11.9 Type 2 diabetes mellitus without complications; F15.10 Other stimulant abuse, uncomplicated; E78.5 Hyperlipidemia, unspecified; F17.210 Nicotine dependence, cigarettes, uncomplicated; J45.909 Unspecified asthma, uncomplicated; Z20.822 Contact with and (suspected) exposure to COVID-19; E87.8 Other disorders of electrolyte and fluid balance, not elsewhere classified; Z88.0 Allergy status to penicillin; Z91.038 Other insect allergy status; Z79.899 Other long term (current) drug therapy; Z79.01 Long term (current) use of anticoagulants; Z79.4 Long term (current) use of insulin; Z91.14 Patient's other noncompliance with medication regimen; Z99.81 Dependence on supplemental oxygen; Z91.030 Bee allergy status
CPT/HCPCS: 0241U; 36415; 36430; 71046; 80053; 82272; 83880; 84484; 85014; 85018; 85025; 86850; 86900; 86901; 86923; 93005; 93010; 94660; 96361; 96374; 96375; 99285-25; C9113; J1940; J7030; P9016

== ENCOUNTER 2024-09-04 10:06 | Emergency (ER) | payer MEDICARE, OTHER ==
[~2024-09-04] VITALS: Ht 182.9 cm; Wt 88.5 kg
[~2024-09-04 10:06] MED LIST changes: +ENTRESTO 24 MG1 EACH PO; +EPIPEN0.3 MG/0.3 IM; +GABA300 PO; +JARDIANCE10 MG PO; +Lisinopril2.5 MG PO; +MAGNESIUM OXID500 MG PO; +OMEP20ER PO; +SPIR25 PO; +STEGLATRO5 MG PO
[2024-09-04] MEDS ORDERED: OZEMPIC0.25 MG/02 SQ (10:52)
[2024-09-04] MEDS ORDERED: LISINOPRIL2.5 MG PO (10:56)
[2024-09-04] MEDS ORDERED: METO50ER PO (10:56)
[2024-09-04 10:58] LABS: BASOPHILS ABSOLUTE AUTO 0.07 K/mm3 (0.00-0.23); BASOPHILS PERCENT AUTO 1 % (0-2); EOSINOPHILS ABSOLUTE AUTO 0.26 K/mm3 (0.00-0.68); EOSINOPHILS PERCENT AUTO 3 % (0-6); Hematocrit 42.1 % (37.0-53.0); Hemoglobin 13.4 g/dL (13.5-17.5); IMMATURE GRAN ABSOLUTE AUTO 0.04 K/mm3 (0.00-0.10); IMMATURE GRAN PERCENT AUTO 1 % (0-1); LYMPHOCYTES PERCENT AUTO 19 % (21-46); MONOCYTES ABSOLUTE AUTO 0.73 K/mm3 (0.16-1.47); MONOCYTES PERCENT AUTO 9 % (4-13); Mean Corpuscular HGB 29.6 pg (26.0-34.0); Mean Corpuscular HGB Conc 31.8 g/dL (31.5-36.5); Mean Corpuscular Volume 93 fL (80-100); Mean Platelet Volume 10.1 fL (9.1-12.4); NEUTROPHILS ABSOLUTE AUTO 5.73 K/mm3 (1.96-9.15); NEUTROPHILS PERCENT AUTO 68 % (41-73); Platelet Count 278 K/mm3 (150-400); RDW Coefficient Variation 14.2 % (11.7-14.2); RDW Standard Deviation 48.6 fL (35.1-46.3); Red Blood Cell Count 4.53 M/mm3 (4.30-5.90); White Blood Cell Count 8.43 K/mm3 (4.00-11.30)
[2024-09-04 11:01] LABS: Bicarbonate Venous 29.5 mmol/L (24.0-30.0); PCO2 Venous 54.3 mmHg (38-42)
[2024-09-04 11:30] LABS: Albumin, Blood 3.3 g/dL (3.4-5.0); Albumin/Globulin Ratio 0.8 (0.8-1.8); Bilirubin, Total 0.3 mg/dL (0.1-1.0); Bun/Creatinine Ratio 14.6 (12.0-20.0); Calcium, Blood 9.3 mg/dL (8.5-10.1); Creatinine, Blood 1.03 mg/dL (0.60-1.20); Globulin, Blood 4.4 g/dL (2.2-4.0); Potassium, Blood 4.2 mmol/L (3.5-5.5); Total Protein, Blood 7.7 g/dL (6.4-8.2)
[2024-09-04] MEDS ORDERED: NS 1,000 ML IV SCH (11:40)
[2024-09-04 12:30] VITALS: BP 161/97
== END 2024-09-04 12:41 | disposition home or self-care (01) ==
LOC: ER 10:06
PROVIDERS: Student in an Organized Health Care Education/Training Program
DX: E11.65 Type 2 diabetes mellitus with hyperglycemia (principal); R35.0 Frequency of micturition; J44.9 Chronic obstructive pulmonary disease, unspecified; K21.9 Gastro-esophageal reflux disease without esophagitis; E78.5 Hyperlipidemia, unspecified; Z88.0 Allergy status to penicillin; Z91.030 Bee allergy status; Z79.899 Other long term (current) drug therapy; Z87.891 Personal history of nicotine dependence
CPT/HCPCS: 80053; 82803; 82947; 85025; 96360; 99285-25; J7030

== ENCOUNTER → 2024-09-24 | Outpatient (CLI) | payer MEDICARE, OTHER ==
[~2024-09-24] MED LIST changes: +LISINOPRIL2.5 MG PO; +OZEMPIC0.25 MG/02 SQ
== END ==
LOC: LAB 19:51 → LAB SHORT 19:51
DX: N39.0 Urinary tract infection, site not specified (principal)
CPT/HCPCS: 87086